=== PATIENT | male | born 1950 | race Caucasian/White ===

== ENCOUNTER → 2016-10-11 | Outpatient (CLI) | payer MEDICARE, MEDICAID ==
[~2016-10-11] MED LIST: ABILIFY 10MG TA10 MG PEG; ABILIFY 10MG TA10 MG PO; ABILIFY 15MG TA15 MG PO; ABILIFY5 MG PO; ALBUTEROL0.83 MG/ML IH; ALDACTONE 25MG25 M1 PEG; ALDACTONE 25MG25 M1 PO; ALDACTONE 25MG25 MG PO; ALDACTONE25 MG PO; ALLEGRA30 MG PEG; ALMACONE 360 M360 ML PO; AMANTADINE HCL100 M1 PO; AMANTADINE100 MG PO; AMBIEN CR12.5 MG PO; AMBIEN10 MG PO; AMITIZA24 MCG PEG; AMITIZA24 MCG PO; ANTI-DIARRHEAL2 MG PO; ANTIFUNGAL1% TP; ANUSOL HC CREAM30 GM TOP; ANUSOL HC CREAM30 GM TP; ARICEPT 5MG PEG; ASPIR-LOW81 MG PO; ASPIRIN 81M81 MG/TA2 PEG; ASPIRIN 81M81 MG/TA2 PO; ASPIRIN E.C. 8181 MG PO; ATIVAN 0.50.5 MG/TAB PO; ATIVAN 1MG T1 MG/TAB PEG; ATIVAN 1MG T1 MG/TAB PO; ATROVENT I0.2 MG/1 M IH; ATROVENT INHALE14 GM IH; ATROVENT0.018 MG/A IH; BACTROBAN15 GM TOP; BENADRYL50 MG PO; BOOST HIGH PRO240 ML PEG; BOOST HIGH PRO240 ML PO; BOOST PLUS 240240 ML PEG; CARAFATE 1GM1 G PO; CARAFATE1 GM PO; CARVEDILOL PO; CEPHALEXIN500 M1 PEG; CLONAZEPAM PO; CLOPIDOGREL; CLOPIDOGREL PO; CLOZAPINE25 MG PO; COGENTIN .0.5 MG/TAB PEG; COGENTIN .0.5 MG/TAB PO; COLACE 100100 MG/CAP PEG; COLACE 100100 MG/CAP PO; COLACE LIQUI10 MG/ML PEG; COLACE100 MG PO; COLACE50 MG PEG; COREG 25MG25 MG/TAB PO; COREG 3.123.125 MG/T PEG; COREG 6.256.25 MG/TA PEG; COREG 6.256.25 MG/TA PO; COREG12.5 MG PEG; COREG12.5 MG PO; CORRECTIVE LAXAT5 MG PO; CPAP; CPAP PO; CYMBALTA 30MG30 MG PEG; CYMBALTA 30MG30 MG PO; CYMBALTA 60MG60 MG PEG; CYMBALTA 60MG60 MG PO; DARVOCET N; DEMADEX 20MG20 M1 PEG; DEMADEX 20MG20 M1 PO; DEMADEX10 MG PO; DESITIN ORIGINAL TP; DESITIN RAPID REL13% TP; DESITIN40% TP; DESYREL 50MG50 MG PEG; DESYREL 50MG50 MG PO; DESYREL DIVIDO150 M1 PO; DETROL LA4 PO; DIGITEK0.125 MG PEG; DIGITEK0.125 MG PO; DIGITEK0.25 MG PO; DIGOXIN PO; DIGOXIN0.25 MG PO; DILAUDID 2MG TAB2 MG; DILAUDID 2MG TAB2 MG PEG; DILAUDID 2MG TAB2 MG PO; DILAUDID 2MG/2 MG/M1 PEG; DILAUDID 4MG TAB4 MG PEG; DULCOLAX S10 MG/SUPP RC; DULCOLAX TAB5 MG PO; DULCOLAX10 MG RC; ELOCON0.1% TP; ENABLEX15 MG PO; ENALAPRIL MALE2.5 MG PO; ENALAPRIL PEG; ENTRESTO 24 MG1 EACH PO; FENTANYL 50MCG TOP; FLEXERIL 1010 MG/TAB PEG; FLONASE NASAL S16 GM NS; FORTAMET500 MG PO; GEODON 40MG40 MG PO; GERI-TUSSI100 MG/5 M PEG; GERI-TUSSI100 MG/5 M PO; GLUCERNA 1.2 C240 ML PO; GLUCERNA 1.21000 ML PEG; GLUCERNA HUNGE340 ML PO; GLUCOPHAGE500 MG PO; HALDOL 5MG T5 MG/TAB PEG; HALDOL 5MG T5 MG/TAB PO; HALDOL10 MG PO; HALDOL20 MG PO; HALDOL5 MG PO; HYDROCORT CREAM2.5% TP; HYDROCORTISONE30 G3; HYDROXYZINE HCL25 MG PO; IBUPROFEN 200200 MG PO; IMDUR 60MG60 MG/TAB PO; IMDUR ER30 MG PO; IMDUR30 MG PO; IMODIUM 2MG CAPS2 MG PEG; INSULIN LANTUS; IPRATROPIUM BROM3 M1 IH; ISOSORBIDE MON120 MG PEG; ISOSORBIDE MON120 MG PO; ISOSORBIDE30 MG PO; KENALOG 60 ML60 M1 TP; KLONOPIN 0.5MG0.5 MG PEG; KLONOPIN 1MG1 MG PEG; KLONOPIN 1MG1 MG PO; KLONOPIN1 MG PO; KLONOPIN2 MG PEG; KLONOPIN2 MG PO; LACTULOSE10 GM/151 PO; LAMISIL AT1% TP; LAMISIL CREAM30 GM TP; LAMISIL1% TP; LANOXIN 0.120.125 MG PEG; LANOXIN 0.120.125 MG PO; LANOXIN 0.25M0.25 MG PO; LANOXIN0.25 MG PO; LANTUS100 U/ML; LANTUS100 U/ML SC; LANTUS100 U/ML SQ; LASIX 20MG TABL20 MG PO; LASIX20 MG PO; LEVEMIR FLEX100 U/ML SQ; LEVEMIR100 U/ML; LEVEMIR100 U/ML SC; LEVEMIR100 U/ML SQ; LEVOTHROID SO0.15 MG PO; LEVOTHROID0.125 MG PO; LEVOTHYROXIN0.075 MG PO; LEVOTHYROXINE PO; LEXAPRO 10MG10 MG PO; LEXAPRO20 MG PO; LEXAPRO5 MG PO; LIDODERM PATCH TP; LIPITOR 80MG80 MG PEG; LIPITOR 80MG80 MG PO; LOPID 600M600 MG/TAB PEG; LOPRESSOR 225 MG/TAB PEG; LOPRESSOR100 MG PEG; LORTAB 5/500 501 TAB PO; LOTRIMIN1% TP; LOTRISONE LOTIO30 ML TP; LOVENOX120 MG/0.8 SC; MAALOX PLUS / M30 ML PO; MAALOX PLUS 3030 ML PEG; MAALOX1 TAB PO; MAG CITRATE; METFORMIN HCL500 M1 PO; METFORMIN500 MG PO; MILK OF MA400 MG/5 M PEG; MILK OF MA400 MG/51 PO; MILK OF MA400 MG/52; MILK OF MA400 MG/52 PEG; MILK OF MA400 MG/52 PO; MINIPRESS 1M1 MG/CAP PEG; MIRALAX 17GM PK1 PKT PO; MIRAPEX0.25 MG PEG; MIRAPEX0.25 MG PO; MONISTAT TOP; MYCOSTATIN100000 U/1 TP; NAFTIN; NAPROSYN500 MG PO; NASONEX SPRAY; NASONEX SPRAY NAS; NEXIUM 40MG40 MG PO; NEXIUM ORA40 MG/Pack PEG; NEXIUM40 MG PO; NIASPAN 500MG500 MG PO; NIASPAN500 MG PO; NITROGLYCERIN0.4 MG SL; NITROSTAT0.4 MG SL; NITROSTAT0.4 MG/TAB SL; NIZORAL CREAM15 GM TP; NORCO 325 MG-51 TAB PEG; NORCO 325 MG-7.1 TAB PO; NOVLOG SC; NOVOLIN R100 U/ML IJ; NOVOLIN R100 U/ML SC; NOVOLOG 100U100 U/M1 SC; NOVOLOG 100U100 U/M1 SQ; NOVOLOG FLEX100 U/ML SC; NOVOLOG FLEX100 U/ML SQ; NOVOLOG100 U/ML IV; NOVOLOG100 U/ML SQ; NYAMYC100000 U/G TP; NYSTATIN POWDER15 GM TOP; OMEGA-31 SGL PO; OXYCODONE PO; PEPCID 20MG TAB20 MG PEG; PEPCID 20MG TAB20 MG PO; PEPCID AC20 MG PEG; PEPTO BISMOL262 MG PO; PERCOCET 325 MG1 TA2 PO; PERCOCET 500 MG1 TAB PO; PHENERGAN1.25 MG/ML PEG; PHENERGAN25 MG/ML PEG; PLAVIX 75MG TAB75 MG PEG; PLAVIX 75MG TAB75 MG PO; PREVACID 30MG30 MG PO; PRILOSEC 20MG20 MG PEG; PRILOSEC 20MG20 MG PO; PRILOSEC PO; PRINIVIL2.5 MG PEG; PRINIVIL5 MG PEG; PROTONIX 40MG T40 MG PO; PULMICORT0.5 MG/2 M IH; PULMICORT0.5 MG/21 IH; RANEXA 500MG T500 MG PEG; RANEXA 500MG T500 MG PO; RANEXA1000 MG PO; REFRESH TEARS 330 ML OP; REMERON45 MG PEG; REMERON45 MG PO; REQUIP 0.5MG0.5 MG PO; REQUIP0.25 MG PEG; SAVELLA100 MG PO; SEE LIST; SENNA-GEN8.6 MG PO; SENNA8.6 MG PO; SENOKOT TABLET1 EA PO; SEROQUEL 1100 MG/TAB PEG; SEROQUEL 200MG200 MG PEG; SEROQUEL 200MG200 MG PO; SEROQUEL50 MG PO; SILACE60 MG/15 M PEG; SYMMETREL PO; SYMMETREL100 M1 PEG; SYMMETREL100 M1 PO; SYMMETREL100 MG PEG; SYNTHROID 0.10.15 MG PEG; SYNTHROID 0.10.15 MG PO; TIROSINT150 MC1 PO; TIROSINT150 MCG PEG; TRAZODONE HCL100 MG PO; TRAZODONE50 MG PO; TRIAMCINOLONE0.025% TOP; TYLENOL 325MG325 M1 PEG; TYLENOL 325MG325 MG PEG; TYLENOL 325MG325 MG PO; TYLENOL 500MG500 MG PEG; TYLENOL 500MG500 MG PO; ULTRAM 50MG TAB50 MG PO; VASOTEC 2.2.5 MG/TAB PO; VESICARE; VESICARE PO; VOLTAREN-XR100 MG PEG; WATER PEG; XOPENEX 0.0.63 MG/3 IH; ZETIA 10MG TAB10 MG PO; ZETIA10 MG PO; ZOCOR 20MG20 MG PO; ZOCOR20 MG PO; ZOCOR80 MG PO; ZOFRAN 4MG T4 MG/TAB PO; ZOFRAN 4MG T4 MG/TAB SL; ZOFRAN ODT4 MG PO; ZOFRAN ORAL4 MG/5 ML PEG; ZOFRAN ORAL4 MG/5 ML PO; ZYPREXA PO; [UNRECOGNIZED DRUG - OTHER] PEG; [UNRECOGNIZED DRUG - OTHER] PO; [UNRECOGNIZED DRUG - OTHER] PO; [UNRECOGNIZED DRUG - OTHER] PO; [UNRECOGNIZED DRUG - OTHER] TOP; [UNRECOGNIZED DRUG - OTHER] TOP
== END ==
LOC: ZCOL.LAB 16:42
DX: I50.23 Acute on chronic systolic (congestive) heart failure (principal)

== ENCOUNTER 2016-10-20 01:39 | Emergency (ER) | payer MEDICARE, MEDICAID ==
[2009-06-25 08:46] VITALS: BP 124/79
[~2016-10-20] VITALS: Ht 180.3 cm; Wt 92.7 kg
[~2016-10-20 01:39] MED LIST changes: -ALBUTEROL0.83 MG/ML IH; -ANTI-DIARRHEAL2 MG PO; -ASPIRIN 81M81 MG/TA2 PO; -ATIVAN 0.50.5 MG/TAB PO; -BACTROBAN15 GM TOP; -BOOST HIGH PRO240 ML PO; -BOOST PLUS 240240 ML PEG; -CORRECTIVE LAXAT5 MG PO; -DEMADEX10 MG PO; -DILAUDID 4MG TAB4 MG PEG; -ENTRESTO 24 MG1 EACH PO; -GERI-TUSSI100 MG/5 M PEG; -GERI-TUSSI100 MG/5 M PO; -IPRATROPIUM BROM3 M1 IH; -ISOSORBIDE MON120 MG PO; -KENALOG 60 ML60 M1 TP; -LEVEMIR FLEX100 U/ML SQ; -MILK OF MA400 MG/52; -MONISTAT TOP; -NAPROSYN500 MG PO; -OMEGA-31 SGL PO; -PLAVIX 75MG TAB75 MG PO; -PRILOSEC 20MG20 MG PEG; -PROTONIX 40MG T40 MG PO; -RANEXA1000 MG PO; -REFRESH TEARS 330 ML OP; -REQUIP 0.5MG0.5 MG PO; -TIROSINT150 MC1 PO; -ULTRAM 50MG TAB50 MG PO; -ZOFRAN ODT4 MG PO
[2016-10-20 01:44] VITALS: TEMP 98.2
[2016-10-20 02:03] LABS: BASO % 0.5 % (0.0-2.0); EOS # 0.1 (0.0-0.7); EOS % 2.4 % (0-4.0); GRAN # 2.7 (1.4-6.5); GRAN % 46.6 % (42.2-75.2); HEMATOCRIT 45.1 % (42.0-52.0); HEMOGLOBIN 15.4 g/dl (13.5-18.0); LYMPH # 2.3 (1.2-3.4); LYMPH % 39.4 % (20.0-51.0); MEAN CELL VOLUME 91 fl (80.0-100.0); MEAN CORPUSCULAR HEMOGLOBIN 31 pg (27.0-31.0); MEAN CORPUSCULAR HGB CONC 34 g/dl (33.0-37.0); MEAN PLATELET VOLUME 9.6 fl (7.4-10.4); MONO # 0.6 (0.1-0.6); MONO % 10.2 % (1.7-9.3); PLATELET COUNT 151 K/mm3 (130-400); RED BLOOD COUNT 4.96 M/mm3 (4.20-5.60); REDCELL DISTRIBUTION WIDTH-CV 12.8 % (11.5-14.5); WHITE BLOOD COUNT 5.8 K/mm3 (4.8-10.8)
[2016-10-20 02:12] LABS: INR 1.1 (0.8-3.0); PROTHROMBIN TIME 12.3 SECONDS (9.7-12.8)
[2016-10-20 02:13] LABS: ADJUSTED CALCIUM 9.5 mg/dL (8.4-10.2); ALANINE AMINOTRANSFERASE 36 U/L (21-72); ALBUMIN 4.3 gm/dL (3.5-5.0); ALKALINE PHOSPHATASE 62 U/L (50-136); ANION GAP 11 mmol/L (7-16); BILIRUBIN,TOTAL 1.3 mg/dL (0.0-1.0); BLOOD UREA NITROGEN 15 mg/dL (9-20); CALCIUM 9.7 mg/dL (8.4-10.2); CARBON DIOXIDE 30 mmol/L (22-30); CHLORIDE 101 mmol/L (98-107); GLUCOSE 127 mg/dL (74-106); LIPASE 86 U/L (23-300); SODIUM 142 mmol/L (137-145); TOTAL PROTEIN 7.1 gm/dL (6.4-8.2)
[2016-10-20 02:25] LABS: TROPONIN-I < 0.012 ng/mL (0.000-0.034)
[2016-10-20] MEDS ORDERED: PRILOSEC 20MG20 MG PEG (02:27)
[2016-10-20] MEDS ORDERED: DEMADEX 20MG20 M1 PO ×2 (02:28→02:43)
[2016-10-20] MEDS ORDERED: KLONOPIN2 MG PEG (02:38)
[2016-10-20] MEDS ORDERED: IPRATROPIUM BROM3 M1 IH (02:40)
[2016-10-20] MEDS ORDERED: DILAUDID 4MG TAB4 MG PEG (02:42)
[2016-10-20 03:00] VITALS: BP 137/82; PULSE 77
== END 2016-10-20 03:26 ==
LOC: COL.ER 01:39
PROVIDERS: Emergency Medicine
DX: R07.89 Other chest pain (principal); E11.9 Type 2 diabetes mellitus without complications; I25.10 Atherosclerotic heart disease of native coronary artery without angina pectoris; Z95.5 Presence of coronary angioplasty implant and graft; I50.9 Heart failure, unspecified; I25.2 Old myocardial infarction; J44.9 Chronic obstructive pulmonary disease, unspecified; Z91.81 History of falling
CPT/HCPCS: A9284; J1170

== ENCOUNTER → 2016-10-26 | Outpatient (CLI) | payer MEDICARE, MEDICAID, BC ==
[~2016-10-26] MED LIST changes: +ALBUTEROL0.83 MG/ML IH; +ANTI-DIARRHEAL2 MG PO; +ASPIRIN 81M81 MG/TA2 PO; +ATIVAN 0.50.5 MG/TAB PO; +BACTROBAN15 GM TOP; +BOOST HIGH PRO240 ML PO; +BOOST PLUS 240240 ML PEG; +CORRECTIVE LAXAT5 MG PO; +DEMADEX10 MG PO; +DILAUDID 4MG TAB4 MG PEG; +ENTRESTO 24 MG1 EACH PO; +GERI-TUSSI100 MG/5 M PEG; +GERI-TUSSI100 MG/5 M PO; +IPRATROPIUM BROM3 M1 IH; +ISOSORBIDE MON120 MG PO; +KENALOG 60 ML60 M1 TP; +LEVEMIR FLEX100 U/ML SQ; +MILK OF MA400 MG/52; +MONISTAT TOP; +NAPROSYN500 MG PO; +OMEGA-31 SGL PO; +PLAVIX 75MG TAB75 MG PO; +PRILOSEC 20MG20 MG PEG; +PROTONIX 40MG T40 MG PO; +RANEXA1000 MG PO; +REFRESH TEARS 330 ML OP; +REQUIP 0.5MG0.5 MG PO; +TIROSINT150 MC1 PO; +ULTRAM 50MG TAB50 MG PO; +ZOFRAN ODT4 MG PO
[2016-10-26 18:11] LABS: BASO % 0.4 % (0.0-2.0); EOS # 0.2 (0.0-0.7); EOS % 1.8 % (0-4.0); GRAN % 63.7 % (42.2-75.2); HEMATOCRIT 44.2 % (42.0-52.0); LYMPH # 2.2 (1.2-3.4); LYMPH % 22.9 % (20.0-51.0); MEAN CELL VOLUME 92 fl (80.0-100.0); MEAN CORPUSCULAR HEMOGLOBIN 31 pg (27.0-31.0); MEAN CORPUSCULAR HGB CONC 34 g/dl (33.0-37.0); MEAN PLATELET VOLUME 11.1 fl (7.4-10.4); MONO % 10.7 % (1.7-9.3); PLATELET COUNT 153 K/mm3 (130-400); RED BLOOD COUNT 4.83 M/mm3 (4.20-5.60); REDCELL DISTRIBUTION WIDTH-CV 12.7 % (11.5-14.5); WHITE BLOOD COUNT 9.5 K/mm3 (4.8-10.8)
[2016-10-26 18:16] LABS: ADJUSTED CALCIUM 9.5 mg/dL (8.4-10.2); ALBUMIN 4.1 gm/dL (3.5-5.0); BILIRUBIN,TOTAL 1.1 mg/dL (0.0-1.0); CALCIUM 9.6 mg/dL (8.4-10.2); CREATININE, serum 1.16 mg/dL (0.66-1.25); POTASSIUM 3.8 mmol/L (3.4-5.0); TOTAL PROTEIN 6.8 gm/dL (6.4-8.2)
== END ==
LOC: ZCOL.LAB 17:55
PROVIDERS: Internal Medicine
DX: E11.65 Type 2 diabetes mellitus with hyperglycemia (principal); I25.10 Atherosclerotic heart disease of native coronary artery without angina pectoris; I50.23 Acute on chronic systolic (congestive) heart failure

== ENCOUNTER → 2016-10-30 | Outpatient (CLI) | payer MEDICARE, BC, MEDICAID | LOC: ZCOL.LAB 23:27 | DX: R30.0 Dysuria (principal); R53.1 Weakness ==

== ENCOUNTER → 2016-10-31 | Outpatient (CLI) | payer MEDICARE, MEDICAID | LOC: COL.RAD 08:16 | DX: R07.89 Other chest pain (principal); I70.0 Atherosclerosis of aorta; I25.10 Atherosclerotic heart disease of native coronary artery without angina pectoris; Z95.0 Presence of cardiac pacemaker; J84.89 Other specified interstitial pulmonary diseases; N20.0 Calculus of kidney; K82.8 Other specified diseases of gallbladder; R10.84 Generalized abdominal pain; Z93.1 Gastrostomy status | CPT/HCPCS: Q9967 ==

== ENCOUNTER → 2016-11-13 | Outpatient (CLI) | payer MEDICARE, MEDICAID | LOC: ZCOL.LAB 13:34 | DX: E11.65 Type 2 diabetes mellitus with hyperglycemia (principal); I48.0 Paroxysmal atrial fibrillation ==

== ENCOUNTER 2016-11-20 18:43 | Emergency (ER) | payer MEDICARE, MEDICAID ==
[2009-06-25 08:46] VITALS: BP 124/79
[~2016-11-20] VITALS: Ht 180.3 cm; Wt 92.3 kg
[~2016-11-20 18:43] MED LIST changes: -ALBUTEROL0.83 MG/ML IH; -ANTI-DIARRHEAL2 MG PO; -ASPIRIN 81M81 MG/TA2 PO; -ATIVAN 0.50.5 MG/TAB PO; -BACTROBAN15 GM TOP; -BOOST HIGH PRO240 ML PO; -BOOST PLUS 240240 ML PEG; -CORRECTIVE LAXAT5 MG PO; -DEMADEX10 MG PO; -ENTRESTO 24 MG1 EACH PO; -GERI-TUSSI100 MG/5 M PEG; -GERI-TUSSI100 MG/5 M PO; -ISOSORBIDE MON120 MG PO; -KENALOG 60 ML60 M1 TP; -LEVEMIR FLEX100 U/ML SQ; -MILK OF MA400 MG/52; -MONISTAT TOP; -NAPROSYN500 MG PO; -OMEGA-31 SGL PO; -PLAVIX 75MG TAB75 MG PO; -PROTONIX 40MG T40 MG PO; -RANEXA1000 MG PO; -REFRESH TEARS 330 ML OP; -REQUIP 0.5MG0.5 MG PO; -TIROSINT150 MC1 PO; -ULTRAM 50MG TAB50 MG PO; -ZOFRAN ODT4 MG PO
[2016-11-20 18:53] VITALS: TEMP 98
[2016-11-20 18:58] LABS: BASO % 0.5 % (0.0-2.0); EOS # 0.1 (0.0-0.7); EOS % 2.2 % (0-4.0); GRAN # 3.4 (1.4-6.5); GRAN % 57.2 % (42.2-75.2); HEMATOCRIT 45.9 % (42.0-52.0); HEMOGLOBIN 15.5 g/dl (13.5-18.0); LYMPH # 1.7 (1.2-3.4); LYMPH % 29.2 % (20.0-51.0); MEAN CELL VOLUME 91 fl (80.0-100.0); MEAN CORPUSCULAR HEMOGLOBIN 31 pg (27.0-31.0); MEAN CORPUSCULAR HGB CONC 34 g/dl (33.0-37.0); MEAN PLATELET VOLUME 10.5 fl (7.4-10.4); MONO # 0.6 (0.1-0.6); MONO % 10.4 % (1.7-9.3); PLATELET COUNT 142 K/mm3 (130-400); RED BLOOD COUNT 5.05 M/mm3 (4.20-5.60); REDCELL DISTRIBUTION WIDTH-CV 13.1 % (11.5-14.5)
[2016-11-20 19:09] LABS: ADJUSTED CALCIUM 9.4 mg/dL (8.4-10.2); ALANINE AMINOTRANSFERASE 29 U/L (21-72); ALBUMIN 4.4 gm/dL (3.5-5.0); ALKALINE PHOSPHATASE 81 U/L (50-136); ANION GAP 11 mmol/L (7-16); BILIRUBIN,TOTAL 1.1 mg/dL (0.0-1.0); BLOOD UREA NITROGEN 19 mg/dL (9-20); CALCIUM 9.7 mg/dL (8.4-10.2); CARBON DIOXIDE 32 mmol/L (22-30); CHLORIDE 96 mmol/L (98-107); CREATININE, serum 1.12 mg/dL (0.66-1.25); GLUCOSE 210 mg/dL (74-106); LIPASE 55 U/L (23-300); POTASSIUM 3.5 mmol/L (3.4-5.0); SODIUM 139 mmol/L (137-145); TOTAL PROTEIN 7.5 gm/dL (6.4-8.2)
[2016-11-20 19:19] LABS: B-TYPE NATRIURETIC PEPTIDE 267 pg/mL (0-125)
[2016-11-20 19:22] LABS: TROPONIN-I < 0.012 ng/mL (0.000-0.034)
[2016-11-20] MEDS ORDERED: NOVOLOG FLEX100 U/ML SQ ×2 (19:41→19:45)
[2016-11-20] MEDS ORDERED: NAPROSYN500 MG PO (19:48)
[2016-11-20] MEDS ORDERED: GERI-TUSSI100 MG/5 M PO (19:48)
[2016-11-20] MEDS ORDERED: CORRECTIVE LAXAT5 MG PO (19:49)
[2016-11-20 20:11] LABS: DIGOXIN 0.8 ng/mL (0.8-2.0)
[2016-11-20] MEDS ORDERED: ULTRAM 50MG TAB50 MG PO (23:38)
[2016-11-21 00:15] VITALS: BP 152/86; PULSE 76
== END 2016-11-21 00:41 | disposition home or self-care (01) ==
LOC: COL.ER 18:43
PROVIDERS: Emergency Medicine
DX: R07.9 Chest pain, unspecified (principal); I10 Essential (primary) hypertension; E11.9 Type 2 diabetes mellitus without complications; Z79.4 Long term (current) use of insulin; Z79.02 Long term (current) use of antithrombotics/antiplatelets; J44.9 Chronic obstructive pulmonary disease, unspecified; Z95.810 Presence of automatic (implantable) cardiac defibrillator; Z95.5 Presence of coronary angioplasty implant and graft; I25.10 Atherosclerotic heart disease of native coronary artery without angina pectoris; I44.0 Atrioventricular block, first degree
CPT/HCPCS: J2270; J2405

== ENCOUNTER → 2016-11-28 | Outpatient (CLI) | payer MEDICARE, MEDICAID ==
[~2016-11-28] MED LIST changes: +ALBUTEROL0.83 MG/ML IH; +ANTI-DIARRHEAL2 MG PO; +ASPIRIN 81M81 MG/TA2 PO; +ATIVAN 0.50.5 MG/TAB PO; +BACTROBAN15 GM TOP; +BOOST HIGH PRO240 ML PO; +BOOST PLUS 240240 ML PEG; +CORRECTIVE LAXAT5 MG PO; +DEMADEX10 MG PO; +ENTRESTO 24 MG1 EACH PO; +GERI-TUSSI100 MG/5 M PEG; +GERI-TUSSI100 MG/5 M PO; +ISOSORBIDE MON120 MG PO; +KENALOG 60 ML60 M1 TP; +LEVEMIR FLEX100 U/ML SQ; +MILK OF MA400 MG/52; +MONISTAT TOP; +NAPROSYN500 MG PO; +OMEGA-31 SGL PO; +PLAVIX 75MG TAB75 MG PO; +PROTONIX 40MG T40 MG PO; +RANEXA1000 MG PO; +REFRESH TEARS 330 ML OP; +REQUIP 0.5MG0.5 MG PO; +TIROSINT150 MC1 PO; +ULTRAM 50MG TAB50 MG PO; +ZOFRAN ODT4 MG PO
== END ==
LOC: COL.RAD 10:37
DX: R10.84 Generalized abdominal pain (principal)
CPT/HCPCS: A9537; J2805

== ENCOUNTER 2016-12-15 13:25 | Day surgery (SDC) | payer MEDICARE, MEDICAID ==
[2009-06-25 08:46] VITALS: BP 124/79
[~2016-12-15] VITALS: Ht 180.3 cm; Wt 91.8 kg
[~2016-12-15 13:25] MED LIST changes: -ALBUTEROL0.83 MG/ML IH; -ANTI-DIARRHEAL2 MG PO; -ASPIRIN 81M81 MG/TA2 PO; -ATIVAN 0.50.5 MG/TAB PO; -BACTROBAN15 GM TOP; -BOOST HIGH PRO240 ML PO; -BOOST PLUS 240240 ML PEG; -DEMADEX10 MG PO; -ENTRESTO 24 MG1 EACH PO; -GERI-TUSSI100 MG/5 M PEG; -ISOSORBIDE MON120 MG PO; -KENALOG 60 ML60 M1 TP; -LEVEMIR FLEX100 U/ML SQ; -MILK OF MA400 MG/52; -MONISTAT TOP; -OMEGA-31 SGL PO; -PLAVIX 75MG TAB75 MG PO; -PROTONIX 40MG T40 MG PO; -RANEXA1000 MG PO; -REFRESH TEARS 330 ML OP; -REQUIP 0.5MG0.5 MG PO; -TIROSINT150 MC1 PO; -ZOFRAN ODT4 MG PO
[2016-12-15 14:26] VITALS: BP 104/78; PULSE 82
[2016-12-15] MEDS ORDERED: AMITIZA24 MCG PO (14:39)
[2016-12-15] MEDS ORDERED: BOOST HIGH PRO240 ML PO (14:46)
[2016-12-15] MEDS ORDERED: PRILOSEC 20MG20 MG PO (14:47)
[2016-12-15] MEDS ORDERED: ENTRESTO 24 MG1 EACH PO (14:50)
[2016-12-15] MEDS ORDERED: ALDACTONE 25MG25 M1 PO (14:51)
[2016-12-15] MEDS ORDERED: MILK OF MA400 MG/52 (14:52)
[2016-12-15] MEDS ORDERED: GERI-TUSSI100 MG/5 M PEG (14:56)
[2016-12-15 15:20] VITALS: BP 130/83; PULSE 76
== END 2016-12-15 15:52 ==
LOC: SDCO 13:25
DX: K94.23 Gastrostomy malfunction (principal)
CPT/HCPCS: 31007; B4087

== ENCOUNTER → 2016-12-26 | Outpatient (CLI) | payer MEDICARE, MEDICAID ==
[~2016-12-26] MED LIST changes: +ALBUTEROL0.83 MG/ML IH; +ANTI-DIARRHEAL2 MG PO; +ASPIRIN 81M81 MG/TA2 PO; +ATIVAN 0.50.5 MG/TAB PO; +BACTROBAN15 GM TOP; +BOOST HIGH PRO240 ML PO; +BOOST PLUS 240240 ML PEG; +DEMADEX10 MG PO; +ENTRESTO 24 MG1 EACH PO; +GERI-TUSSI100 MG/5 M PEG; +ISOSORBIDE MON120 MG PO; +KENALOG 60 ML60 M1 TP; +LEVEMIR FLEX100 U/ML SQ; +MILK OF MA400 MG/52; +MONISTAT TOP; +OMEGA-31 SGL PO; +PLAVIX 75MG TAB75 MG PO; +PROTONIX 40MG T40 MG PO; +RANEXA1000 MG PO; +REFRESH TEARS 330 ML OP; +REQUIP 0.5MG0.5 MG PO; +TIROSINT150 MC1 PO; +ZOFRAN ODT4 MG PO
[2016-12-26 17:42] LABS: CALCIUM 9.5 mg/dL (8.4-10.2); CREATININE, serum 1.15 mg/dL (0.66-1.25); POTASSIUM 4.4 mmol/L (3.4-5.0)
== END ==
LOC: ZCOL.LAB 15:08
PROVIDERS: Internal Medicine
DX: E11.65 Type 2 diabetes mellitus with hyperglycemia (principal)

== ENCOUNTER 2016-12-31 14:30 | Emergency (ER) | payer MEDICARE, MEDICAID ==
[2009-06-25 08:46] VITALS: BP 124/79
[~2016-12-31] VITALS: Ht 180.3 cm; Wt 91.8 kg
[~2016-12-31 14:30] MED LIST changes: -ALBUTEROL0.83 MG/ML IH; -ANTI-DIARRHEAL2 MG PO; -ASPIRIN 81M81 MG/TA2 PO; -ATIVAN 0.50.5 MG/TAB PO; -BACTROBAN15 GM TOP; -BOOST PLUS 240240 ML PEG; -DEMADEX10 MG PO; -ISOSORBIDE MON120 MG PO; -KENALOG 60 ML60 M1 TP; -LEVEMIR FLEX100 U/ML SQ; -MONISTAT TOP; -OMEGA-31 SGL PO; -PLAVIX 75MG TAB75 MG PO; -PROTONIX 40MG T40 MG PO; -RANEXA1000 MG PO; -REFRESH TEARS 330 ML OP; -REQUIP 0.5MG0.5 MG PO; -TIROSINT150 MC1 PO; -ZOFRAN ODT4 MG PO
[2016-12-31 14:36] VITALS: TEMP 97.9
[2016-12-31] MEDS ORDERED: AMITIZA24 MCG PO ×2 (15:04→15:05)
[2016-12-31 15:52] LABS: BASO % 0.5 % (0.0-2.0); EOS # 0.1 (0.0-0.7); EOS % 1.7 % (0-4.0); GRAN % 61.7 % (42.2-75.2); HEMATOCRIT 43.3 % (42.0-52.0); HEMOGLOBIN 14.8 g/dl (13.5-18.0); LYMPH # 1.8 (1.2-3.4); LYMPH % 27.1 % (20.0-51.0); MEAN CELL VOLUME 90 fl (80.0-100.0); MEAN CORPUSCULAR HEMOGLOBIN 31 pg (27.0-31.0); MEAN CORPUSCULAR HGB CONC 34 g/dl (33.0-37.0); MEAN PLATELET VOLUME 10.5 fl (7.4-10.4); MONO # 0.5 (0.1-0.6); MONO % 8.2 % (1.7-9.3); PLATELET COUNT 139 K/mm3 (130-400); REDCELL DISTRIBUTION WIDTH-CV 13.3 % (11.5-14.5); WHITE BLOOD COUNT 6.5 K/mm3 (4.8-10.8)
[2016-12-31 15:54] LABS: INR 1.1 (0.8-3.0); PROTHROMBIN TIME 12.6 SECONDS (9.7-12.8)
[2016-12-31 15:57] LABS: PARTIAL THROMBOPLASTIN TIME 32.2 SECONDS (26.0-37.0)
[2016-12-31 15:58] LABS: ADJUSTED CALCIUM 9.2 mg/dL (8.4-10.2); CALCIUM 9.2 mg/dL (8.4-10.2); CREATININE, serum 1.24 mg/dL (0.66-1.25); POTASSIUM 4.5 mmol/L (3.4-5.0); TOTAL PROTEIN 6.6 gm/dL (6.4-8.2)
[2016-12-31] MEDS ORDERED: REQUIP 0.5MG0.5 MG PO (16:04)
[2016-12-31] MEDS ORDERED: IPRATROPIUM BROM3 M1 IH (16:12)
[2016-12-31] MEDS ORDERED: ZOFRAN ODT4 MG PO (16:15)
[2016-12-31 17:09] VITALS: BP 113/69; PULSE 88
== END 2016-12-31 17:50 | disposition home or self-care (01) ==
LOC: COL.ER 14:30
PROVIDERS: Emergency Medicine
DX: S50.01XA Contusion of right elbow, initial encounter (principal); S50.311A Abrasion of right elbow, initial encounter; E11.9 Type 2 diabetes mellitus without complications; I10 Essential (primary) hypertension; Z79.4 Long term (current) use of insulin; W18.09XA Striking against other object with subsequent fall, initial encounter
CPT/HCPCS: J1170

== ENCOUNTER 2017-01-12 11:58 | Day surgery (SDC) | payer MEDICARE, MEDICAID ==
[2009-06-25 08:46] VITALS: BP 124/79
[~2017-01-12] VITALS: Ht 180.3 cm; Wt 90.0 kg
[~2017-01-12 11:58] MED LIST changes: +REQUIP 0.5MG0.5 MG PO; +ZOFRAN ODT4 MG PO
[2017-01-12 12:40] VITALS: BP 111/60; PULSE 80; TEMP 98.4
[2017-01-12 13:09] LABS: HEMATOCRIT 40.4 % (42.0-52.0); HEMOGLOBIN 13.9 g/dl (13.5-18.0); MEAN CELL VOLUME 90 fl (80.0-100.0); MEAN CORPUSCULAR HEMOGLOBIN 31 pg (27.0-31.0); MEAN CORPUSCULAR HGB CONC 34 g/dl (33.0-37.0); MEAN PLATELET VOLUME 9.9 fl (7.4-10.4); PLATELET COUNT 150 K/mm3 (130-400); RED BLOOD COUNT 4.51 M/mm3 (4.20-5.60); WHITE BLOOD COUNT 8.5 K/mm3 (4.8-10.8)
[2017-01-12 13:10] LABS: CALCIUM 9.1 mg/dL (8.4-10.2); CREATININE, serum 1.19 mg/dL (0.66-1.25); POTASSIUM 4.4 mmol/L (3.4-5.0)
[2017-01-12 13:13] LABS: INR 1.2 (0.8-3.0); PROTHROMBIN TIME 13.3 SECONDS (9.7-12.8)
[2017-01-12] MEDS ORDERED: DILAUDID 4MG TAB4 MG PEG (14:15)
[2017-01-12] MEDS ORDERED: LASIX 20MG TABL20 MG PO (14:31)
[2017-01-12] MEDS ORDERED: ALBUTEROL0.83 MG/ML IH (14:39)
[2017-01-12 14:44] VITALS: BP 143/86; PULSE 84
[2017-01-12 16:20] VITALS: BP 116/48; PULSE 79; TEMP 98.2
[2017-01-12 16:50] VITALS: BP 117/71; PULSE 86
[2017-01-12 20:16] VITALS: BP 119/69; PULSE 84; TEMP 97.2
[2017-01-12 23:57] VITALS: BP 123/71; PULSE 83; TEMP 98.2
[2017-01-13 03:48] VITALS: BP 136/84; PULSE 77; TEMP 98
[2017-01-13 08:32] VITALS: BP 126/72; PULSE 81; TEMP 97.6
== END 2017-01-13 13:04 ==
LOC: COL.RAD 11:58 → MEDICAL 16:15 → COL.RAD 01-13 13:04
PROVIDERS: Internal Medicine Interventional Cardiology
DX: Z45.02 Encounter for adjustment and management of automatic implantable cardiac defibrillator (principal); I50.22 Chronic systolic (congestive) heart failure; I48.91 Unspecified atrial fibrillation; E11.9 Type 2 diabetes mellitus without complications; G47.33 Obstructive sleep apnea (adult) (pediatric); G20 Parkinson's disease
CPT/HCPCS: OP; C1721; J0690; J1815; J2250; J3010; J7030

== ENCOUNTER → 2017-02-05 | Outpatient (CLI) | payer MEDICARE, MEDICAID ==
[~2017-02-05] MED LIST changes: +ALBUTEROL0.83 MG/ML IH; +ANTI-DIARRHEAL2 MG PO; +ASPIRIN 81M81 MG/TA2 PO; +ATIVAN 0.50.5 MG/TAB PO; +BACTROBAN15 GM TOP; +BOOST PLUS 240240 ML PEG; +DEMADEX10 MG PO; +ISOSORBIDE MON120 MG PO; +KENALOG 60 ML60 M1 TP; +LEVEMIR FLEX100 U/ML SQ; +MONISTAT TOP; +OMEGA-31 SGL PO; +PLAVIX 75MG TAB75 MG PO; +PROTONIX 40MG T40 MG PO; +RANEXA1000 MG PO; +REFRESH TEARS 330 ML OP; +TIROSINT150 MC1 PO
== END ==
LOC: ZCOL.LAB 12:21
DX: E11.65 Type 2 diabetes mellitus with hyperglycemia (principal); Z02.89 Encounter for other administrative examinations

== ENCOUNTER 2017-03-23 17:02 | Emergency (ER) | payer MEDICARE, MEDICAID ==
[2009-06-25 08:46] VITALS: BP 124/79
[~2017-03-23] VITALS: Ht 180.3 cm; Wt 92.7 kg
[~2017-03-23 17:02] MED LIST changes: -ANTI-DIARRHEAL2 MG PO; -ASPIRIN 81M81 MG/TA2 PO; -ATIVAN 0.50.5 MG/TAB PO; -BACTROBAN15 GM TOP; -BOOST PLUS 240240 ML PEG; -DEMADEX10 MG PO; -ISOSORBIDE MON120 MG PO; -KENALOG 60 ML60 M1 TP; -LEVEMIR FLEX100 U/ML SQ; -MONISTAT TOP; -OMEGA-31 SGL PO; -PLAVIX 75MG TAB75 MG PO; -PROTONIX 40MG T40 MG PO; -RANEXA1000 MG PO; -REFRESH TEARS 330 ML OP; -TIROSINT150 MC1 PO
[2017-03-23 17:03] VITALS: TEMP 98.1
[2017-03-23 17:46] LABS: BASO % 0.4 % (0.0-2.0); EOS # 0.1 (0.0-0.7); EOS % 1.9 % (0-4.0); GRAN # 4.4 (1.4-6.5); GRAN % 64.1 % (42.2-75.2); HEMATOCRIT 40.5 % (42.0-52.0); HEMOGLOBIN 14.2 g/dl (13.5-18.0); LYMPH # 1.4 (1.2-3.4); LYMPH % 20.8 % (20.0-51.0); MEAN CELL VOLUME 92 fl (80.0-100.0); MEAN CORPUSCULAR HEMOGLOBIN 32 pg (27.0-31.0); MEAN CORPUSCULAR HGB CONC 35 g/dl (33.0-37.0); MEAN PLATELET VOLUME 10.3 fl (7.4-10.4); MONO # 0.8 (0.1-0.6); MONO % 11.8 % (1.7-9.3); PLATELET COUNT 121 K/mm3 (130-400); RED BLOOD COUNT 4.41 M/mm3 (4.20-5.60); REDCELL DISTRIBUTION WIDTH-CV 12.7 % (11.5-14.5); WHITE BLOOD COUNT 6.8 K/mm3 (4.8-10.8)
[2017-03-23 17:55] LABS: CALCIUM 8.9 mg/dL (8.4-10.2); CREATININE, serum 1.4 mg/dL (0.66-1.25); POTASSIUM 3.7 mmol/L (3.4-5.0)
[2017-03-23 19:51] VITALS: BP 128/72; PULSE 80
== END 2017-03-23 19:51 | disposition home or self-care (01) ==
LOC: COL.ER 17:02
PROVIDERS: Emergency Medicine
DX: S09.90XA Unspecified injury of head, initial encounter (principal); S00.03XA Contusion of scalp, initial encounter; W01.198A Fall on same level from slipping, tripping and stumbling with subsequent striking against other object, initial encounter; Y92.414 Local residential or business street as the place of occurrence of the external cause; M54.5 Low back pain; F99 Mental disorder, not otherwise specified; G89.29 Other chronic pain; I10 Essential (primary) hypertension
CPT/HCPCS: J7040

== ENCOUNTER → 2017-03-23 | Outpatient (CLI) | payer MEDICARE, MEDICAID ==
[2017-03-23 06:40] LABS: CALCIUM 8.7 mg/dL (8.4-10.2); POTASSIUM 3.7 mmol/L (3.4-5.0)
== END ==
LOC: ZCOL.LAB 06:03
PROVIDERS: Internal Medicine
DX: I50.23 Acute on chronic systolic (congestive) heart failure (principal)

== ENCOUNTER 2017-05-04 09:42 | Day surgery (SDC) | payer MEDICARE, MEDICAID ==
[2009-06-25 08:46] VITALS: BP 124/79
[~2017-05-04] VITALS: Ht 180.3 cm; Wt 90.2 kg
[2017-05-04 10:08] VITALS: BP 105/68; PULSE 95; TEMP 98
[2017-05-04] MEDS ORDERED: SYMMETREL100 M1 PO (10:40)
[2017-05-04] MEDS ORDERED: AMITIZA24 MCG PO (10:41)
[2017-05-04] MEDS ORDERED: ASPIRIN 81M81 MG/TA2 PO (10:41)
[2017-05-04] MEDS ORDERED: LIPITOR 80MG80 MG PO (10:42)
[2017-05-04] MEDS ORDERED: NITROSTAT0.4 MG/TAB SL (10:43)
[2017-05-04] MEDS ORDERED: COGENTIN .0.5 MG/TAB PO (10:43)
[2017-05-04] MEDS ORDERED: PLAVIX 75MG TAB75 MG PO (10:44)
[2017-05-04] MEDS ORDERED: TIROSINT150 MC1 PO (10:45)
[2017-05-04] MEDS ORDERED: TYLENOL 500MG500 MG PO (10:45)
[2017-05-04] MEDS ORDERED: WATER PEG (10:48)
[2017-05-04] MEDS ORDERED: PEPCID 20MG TAB20 MG PO (10:48)
[2017-05-04] MEDS ORDERED: COREG12.5 MG PO (10:49)
[2017-05-04] MEDS ORDERED: MILK OF MA400 MG/52 PO (10:49)
[2017-05-04] MEDS ORDERED: CYMBALTA 30MG30 MG PO (10:50)
[2017-05-04] MEDS ORDERED: ZOFRAN 4MG T4 MG/TAB PO (10:51)
[2017-05-04] MEDS ORDERED: NOVOLOG FLEX100 U/ML SQ (10:52)
[2017-05-04] MEDS ORDERED: ABILIFY 10MG TA10 MG PO (10:53)
[2017-05-04] MEDS ORDERED: BOOST PLUS 240240 ML PEG (10:53)
[2017-05-04] MEDS ORDERED: KLONOPIN2 MG PO (10:54)
[2017-05-04] MEDS ORDERED: GERI-TUSSI100 MG/5 M PEG (10:55)
[2017-05-04] MEDS ORDERED: ISOSORBIDE MON120 MG PO (10:56)
[2017-05-04] MEDS ORDERED: DULCOLAX TAB5 MG PO (10:56)
[2017-05-04] MEDS ORDERED: LANOXIN 0.120.125 MG PO (10:57)
[2017-05-04] MEDS ORDERED: ALDACTONE 25MG25 M1 PO (10:58)
[2017-05-04] MEDS ORDERED: ATROVENT I0.2 MG/1 M IH (10:58)
[2017-05-04] MEDS ORDERED: REQUIP 0.5MG0.5 MG PO (10:59)
[2017-05-04] MEDS ORDERED: RANEXA1000 MG PO (10:59)
[2017-05-04] MEDS ORDERED: LEVEMIR FLEX100 U/ML SQ (11:00)
[2017-05-04] MEDS ORDERED: ENTRESTO 24 MG1 EACH PO (11:00)
[2017-05-04] MEDS ORDERED: REFRESH TEARS 330 ML OP ×2 (11:01→11:06)
[2017-05-04] MEDS ORDERED: OMEGA-31 SGL PO (11:01)
[2017-05-04] MEDS ORDERED: ANTI-DIARRHEAL2 MG PO (11:02)
[2017-05-04] MEDS ORDERED: BACTROBAN15 GM TOP (11:02)
[2017-05-04] MEDS ORDERED: MONISTAT TOP (11:03)
[2017-05-04] MEDS ORDERED: ATIVAN 0.50.5 MG/TAB PO (11:04)
[2017-05-04] MEDS ORDERED: DEMADEX10 MG PO (11:04)
[2017-05-04] MEDS ORDERED: KENALOG 60 ML60 M1 TP (11:05)
[2017-05-04] MEDS ORDERED: PROTONIX 40MG T40 MG PO (11:06)
[2017-05-04] MEDS ORDERED: DILAUDID 2MG TAB2 MG PO (11:07)
[2017-05-04 14:35] VITALS: BP 113/68; PULSE 93
== END 2017-05-04 13:05 | disposition home or self-care (01) ==
LOC: SDCO 09:42
DX: T18.2XXA Foreign body in stomach, initial encounter (principal); K22.0 Achalasia of cardia; R13.12 Dysphagia, oropharyngeal phase; K21.9 Gastro-esophageal reflux disease without esophagitis; E11.9 Type 2 diabetes mellitus without complications; F32.9 Major depressive disorder, single episode, unspecified; Z79.4 Long term (current) use of insulin; Z79.84 Long term (current) use of oral hypoglycemic drugs
CPT/HCPCS: B4087; J0585; J2250; J3010; J7030

== ENCOUNTER → 2017-05-14 | Outpatient (CLI) | payer MEDICARE, MEDICAID ==
[~2017-05-14] MED LIST changes: +ANTI-DIARRHEAL2 MG PO; +ASPIRIN 81M81 MG/TA2 PO; +ATIVAN 0.50.5 MG/TAB PO; +BACTROBAN15 GM TOP; +BOOST PLUS 240240 ML PEG; +DEMADEX10 MG PO; +ISOSORBIDE MON120 MG PO; +KENALOG 60 ML60 M1 TP; +LEVEMIR FLEX100 U/ML SQ; +MONISTAT TOP; +OMEGA-31 SGL PO; +PLAVIX 75MG TAB75 MG PO; +PROTONIX 40MG T40 MG PO; +RANEXA1000 MG PO; +REFRESH TEARS 330 ML OP; +TIROSINT150 MC1 PO
== END ==
LOC: ZCOL.LAB 13:34
DX: T46.0X1A Poisoning by cardiac-stimulant glycosides and drugs of similar action, accidental (unintentional), initial encounter (principal); E11.65 Type 2 diabetes mellitus with hyperglycemia

== ENCOUNTER → 2017-05-15 | Outpatient (CLI) | payer MEDICARE, MEDICAID | LOC: ZCOL.LAB 03:35 | DX: E11.65 Type 2 diabetes mellitus with hyperglycemia (principal) ==

== ENCOUNTER → 2017-06-22 | Outpatient (CLI) | payer MEDICARE, MEDICAID ==
[2017-06-22 13:26] LABS: CALCIUM 9.2 mg/dL (8.4-10.2); CREATININE, serum 0.91 mg/dL (0.66-1.25); POTASSIUM 3.9 mmol/L (3.4-5.0)
== END ==
LOC: ZCOL.LAB 10:49
PROVIDERS: Internal Medicine
DX: I50.23 Acute on chronic systolic (congestive) heart failure (principal)

== ENCOUNTER 2017-07-27 14:13 | Emergency (ER) | payer MEDICARE, MEDICAID ==
[~2017-07-27] VITALS: Ht 180.3 cm; Wt 90.9 kg
[2017-07-27 14:20] VITALS: TEMP 98.3
[2017-07-27 14:52] LABS: BASO % 0.5 % (0.0-2.0); EOS # 0.2 (0.0-0.7); GRAN # 4.7 (1.4-6.5); GRAN % 58.8 % (42.2-75.2); HEMATOCRIT 44.2 % (42.0-52.0); HEMOGLOBIN 15.5 g/dl (13.5-18.0); LYMPH # 2.3 (1.2-3.4); LYMPH % 28.9 % (20.0-51.0); MEAN CELL VOLUME 94 fl (80.0-100.0); MEAN CORPUSCULAR HEMOGLOBIN 33 pg (27.0-31.0); MEAN CORPUSCULAR HGB CONC 35 g/dl (33.0-37.0); MEAN PLATELET VOLUME 10.2 fl (7.4-10.4); MONO # 0.7 (0.1-0.6); MONO % 8.8 % (1.7-9.3); PLATELET COUNT 145 K/mm3 (130-400); RED BLOOD COUNT 4.72 M/mm3 (4.20-5.60)
[2017-07-27 14:56] LABS: INR 1.1 (0.8-3.0); PROTHROMBIN TIME 12.2 SECONDS (9.7-12.8)
[2017-07-27 14:58] LABS: PARTIAL THROMBOPLASTIN TIME 30.6 SECONDS (26.0-37.0)
[2017-07-27 15:03] LABS: ALANINE AMINOTRANSFERASE 23 U/L (21-72); ALBUMIN 4.3 gm/dL (3.5-5.0); ALKALINE PHOSPHATASE 61 U/L (50-136); ANION GAP 12 mmol/L (7-16); BILIRUBIN,TOTAL 1.2 mg/dL (0.0-1.0); BLOOD UREA NITROGEN 19 mg/dL (9-20); CALCIUM 9.2 mg/dL (8.4-10.2); CARBON DIOXIDE 27 mmol/L (22-30); CHLORIDE 100 mmol/L (98-107); CREATININE, serum 0.86 mg/dL (0.66-1.25); GLUCOSE 163 mg/dL (74-106); POTASSIUM 4.4 mmol/L (3.4-5.0); SODIUM 139 mmol/L (137-145)
[2017-07-27 15:13] LABS: B-TYPE NATRIURETIC PEPTIDE 75 pg/mL (0-125)
[2017-07-27 15:14] LABS: TROPONIN-I < 0.012 ng/mL (0.000-0.034)
[2017-07-27] MEDS ORDERED: NOVOLOG FLEX100 U/ML SQ (15:17)
[2017-07-27] MEDS ORDERED: AMITIZA24 MCG PO (15:17)
[2017-07-27] MEDS ORDERED: RANEXA1000 MG PO (15:18)
[2017-07-27] MEDS ORDERED: ISOSORBIDE MON120 MG PO (15:18)
[2017-07-27] MEDS ORDERED: ENTRESTO 24 MG1 EACH PO (15:27)
[2017-07-27] MEDS ORDERED: LEVEMIR100 U/ML SQ (15:28)
[2017-07-27] MEDS ORDERED: OMEGA-31 SGL PO (15:29)
[2017-07-27] MEDS ORDERED: DEMADEX10 MG PO (15:30)
[2017-07-27] MEDS ORDERED: SYNTHROID 0.10.15 MG PO (15:30)
[2017-07-27] MEDS ORDERED: BOOST PLUS 240240 ML PEG (15:30)
[2017-07-27] MEDS ORDERED: ASPIRIN 81M81 MG/TA2 PO (15:33)
[2017-07-27] MEDS ORDERED: LIPITOR 80MG80 MG PO (15:33)
[2017-07-27] MEDS ORDERED: COGENTIN .0.5 MG/TAB PO (15:34)
[2017-07-27] MEDS ORDERED: PLAVIX 75MG TAB75 MG PO (15:34)
[2017-07-27] MEDS ORDERED: PEPCID 20MG TAB20 MG PEG (15:34)
[2017-07-27] MEDS ORDERED: ABILIFY 10MG TA10 MG PEG (15:35)
[2017-07-27] MEDS ORDERED: COREG12.5 MG PEG (15:35)
[2017-07-27] MEDS ORDERED: KLONOPIN2 MG PEG (15:36)
[2017-07-27] MEDS ORDERED: LANOXIN 0.120.125 MG PEG (15:37)
[2017-07-27] MEDS ORDERED: PROTONIX 40MG T40 MG PO (15:44)
[2017-07-27] MEDS ORDERED: SYMMETREL50 MG/5 ML PEG (15:45)
[2017-07-27] MEDS ORDERED: CYMBALTA 30MG30 MG PO (15:48)
[2017-07-27] MEDS ORDERED: SINEMET 25/101 UDTAB PEG (15:48)
[2017-07-27] MEDS ORDERED: ALDACTONE 25MG25 M1 PEG (15:49)
[2017-07-27] MEDS ORDERED: DILAUDID 2MG TAB2 MG PEG (15:50)
[2017-07-27] MEDS ORDERED: DULCOLAX TAB5 MG PO (15:52)
[2017-07-27] MEDS ORDERED: ATIVAN 0.50.5 MG/TAB PO (15:53)
[2017-07-27] MEDS ORDERED: ZOFRAN ODT4 MG PO (15:54)
[2017-07-27] MEDS ORDERED: NITROSTAT0.4 MG/TAB SL (15:54)
[2017-07-27 18:45] VITALS: BP 120/82; PULSE 83
== END 2017-07-27 18:48 | disposition home or self-care (01) ==
LOC: COL.ER 14:13
PROVIDERS: Emergency Medicine
DX: R07.89 Other chest pain (principal); G89.29 Other chronic pain; I10 Essential (primary) hypertension; E11.9 Type 2 diabetes mellitus without complications; E03.9 Hypothyroidism, unspecified; I50.9 Heart failure, unspecified; J44.9 Chronic obstructive pulmonary disease, unspecified; K21.9 Gastro-esophageal reflux disease without esophagitis; F31.9 Bipolar disorder, unspecified; F20.9 Schizophrenia, unspecified; G20 Parkinson's disease; Z95.5 Presence of coronary angioplasty implant and graft; Z79.4 Long term (current) use of insulin; Z79.02 Long term (current) use of antithrombotics/antiplatelets
CPT/HCPCS: J1170; J1885; J2405

== ENCOUNTER → 2017-09-19 | Outpatient (CLI) | payer MEDICARE, MEDICAID ==
[~2017-09-19] MED LIST changes: +IMODIUM 2MG CAPS2 MG PO; +SINEMET 25/101 UDTAB PEG; +SYMMETREL50 MG/5 ML PEG
[2017-09-19 03:48] LABS: CALCIUM 8.8 mg/dL (8.4-10.2); CREATININE, serum 0.78 mg/dL (0.66-1.25); POTASSIUM 3.9 mmol/L (3.4-5.0)
== END ==
LOC: ZCOL.LAB 01:35
PROVIDERS: Internal Medicine
DX: R79.89 Other specified abnormal findings of blood chemistry (principal)

== ENCOUNTER → 2017-10-11 | Outpatient (CLI) | payer MEDICARE, MEDICAID ==
[2017-10-11 04:11] LABS: THYROID STIMULATING HORMONE 1.16 uIU/mL (0.465-4.680)
== END ==
LOC: ZCOL.LAB 03:28
PROVIDERS: Internal Medicine
DX: N18.9 Chronic kidney disease, unspecified (principal); E03.9 Hypothyroidism, unspecified

== ENCOUNTER → 2017-11-12 | Outpatient (REF) | LOC: ZCOL.LAB 13:31 | DX: I50.23 Acute on chronic systolic (congestive) heart failure (principal); E11.65 Type 2 diabetes mellitus with hyperglycemia ==

== ENCOUNTER 2017-11-13 08:50 | Inpatient (IN) | payer MEDICARE, MEDICAID ==
[~2017-11-13] VITALS: Ht 180.3 cm; Wt 93.6 kg
[2017-11-13 09:13] LABS: HEMATOCRIT 45.3 % (42.0-52.0); HEMOGLOBIN 15.4 g/dl (13.5-18.0); MEAN CELL VOLUME 92 fl (80.0-100.0); MEAN CORPUSCULAR HEMOGLOBIN 31 pg (27.0-31.0); MEAN CORPUSCULAR HGB CONC 34 g/dl (33.0-37.0); MEAN PLATELET VOLUME 10.2 fl (7.4-10.4); PLATELET COUNT 105 K/mm3 (130-400); REDCELL DISTRIBUTION WIDTH-CV 13.3 % (11.5-14.5)
[2017-11-13 09:16] LABS: INR 1.1 (0.8-3.0); PROTHROMBIN TIME 12.6 SECONDS (9.7-12.8)
[2017-11-13 09:18] LABS: PARTIAL THROMBOPLASTIN TIME 31.7 SECONDS (26.0-37.0)
[2017-11-13 09:30] LABS: ALANINE AMINOTRANSFERASE 52 U/L (21-72); ALBUMIN 4.6 gm/dL (3.5-5.0); ALKALINE PHOSPHATASE 67 U/L (50-136); ANION GAP 12 mmol/L (7-16); AST,SGOT 35 U/L (15-37); BILIRUBIN,TOTAL 0.9 mg/dL (0.0-1.0); BLOOD UREA NITROGEN 15 mg/dL (9-20); CARBON DIOXIDE 28 mmol/L (22-30); CHLORIDE 100 mmol/L (98-107); CREATININE, serum 0.81 mg/dL (0.66-1.25); GLUCOSE 181 mg/dL (74-106); SODIUM 140 mmol/L (137-145)
[2017-11-13 09:43] LABS: TROPONIN-I < 0.012 ng/mL (0.000-0.034)
[2017-11-13 09:44] LABS: BAND 9 % (0-10); LYMPHOCYTE 38 % (20.0-51.0); NEUTROPHILS 41 % (42.0-75.2); PLATELET ESTIMATE DECREASED (NORMAL)
[2017-11-13] MEDS ORDERED: COLACE 100100 MG/CAP PO (16:03)
[2017-11-13] MEDS ORDERED: DULCOLAX TAB5 MG PO (16:06)
[2017-11-13 16:13] VITALS: BP 127/68; PULSE 87; TEMP 97.9
[2017-11-13 16:19] VITALS: BP 127/68; PULSE 89; TEMP 98
[2017-11-13 17:28] LABS: DIGOXIN 0.7 ng/mL (0.8-2.0)
[2017-11-13 17:34] LABS: TROPONIN-I < 0.012 ng/mL (0.000-0.034)
[2017-11-13 20:18] VITALS: BP 140/82; PULSE 97; TEMP 98.8
[2017-11-14 02:18] VITALS: BP 137/74; PULSE 94; TEMP 98.3
[2017-11-14 07:05] LABS: BASO % 0.5 % (0.0-2.0); EOS % 1.1 % (0-4.0); GRAN # 1.4 (1.4-6.5); GRAN % 37.1 % (42.2-75.2); HEMATOCRIT 49.1 % (42.0-52.0); HEMOGLOBIN 16.5 g/dl (13.5-18.0); LYMPH # 1.6 (1.2-3.4); LYMPH % 44.9 % (20.0-51.0); MEAN CELL VOLUME 94 fl (80.0-100.0); MEAN CORPUSCULAR HEMOGLOBIN 32 pg (27.0-31.0); MEAN CORPUSCULAR HGB CONC 34 g/dl (33.0-37.0); MEAN PLATELET VOLUME 10.5 fl (7.4-10.4); MONO # 0.6 (0.1-0.6); MONO % 15.3 % (1.7-9.3); PLATELET COUNT 103 K/mm3 (130-400); RED BLOOD COUNT 5.21 M/mm3 (4.20-5.60); REDCELL DISTRIBUTION WIDTH-CV 13.4 % (11.5-14.5)
[2017-11-14 07:11] LABS: CHOLESTEROL 142 mg/dL (120-200); CHOLESTEROL RISK RATIO 5.2; HDL CHOLESTEROL 27 mg/dL; LDL CHOLESTEROL 64 mg/dL; TRIGLYCERIDE 254 mg/dL
[2017-11-14 07:16] LABS: ALBUMIN 4.3 gm/dL (3.5-5.0); BILIRUBIN,TOTAL 0.7 mg/dL (0.0-1.0); CREATININE, serum 0.83 mg/dL (0.66-1.25); PHOSPHOROUS 4.5 mg/dL (2.5-4.5); POTASSIUM 3.6 mmol/L (3.4-5.0); TOTAL PROTEIN 6.9 gm/dL (6.4-8.2)
[2017-11-14 07:23] LABS: PRE ALBUMIN 29.3 mg/dL (17.6-36.0)
[2017-11-14 07:25] LABS: TROPONIN-I < 0.012 ng/mL (0.000-0.034)
[2017-11-14 07:30] VITALS: BP 127/71; PULSE 93; TEMP 98.5
[2017-11-14 08:31] LABS: PATHOLOGY DIFF REVIEW OK
[2017-11-14 08:40] VITALS: BP 128/78; PULSE 98; TEMP 98.5
[2017-11-14 11:00] VITALS: BP 99/63; PULSE 96; TEMP 97.9
[2017-11-14 11:32] VITALS: BP 98/66
[2017-11-14 12:43] LABS: ARTERIAL BLD GAS O2 SATURATION 93.2 % (92-100); ARTERIAL BLD GAS TCO2 CT 25.3; ARTERIAL BLOOD GAS BASE EXCESS 0.3 (-2-2); ARTERIAL BLOOD GAS HCO3 24.2 meq/L (22-26); ARTERIAL BLOOD GAS PO2 69.2 mmHg (80-100); ARTERIAL BLOOD GAS pH 7.43 (7.35-7.45)
[2017-11-14] MEDS ORDERED: VOLTAREN GEL 1%1 TU TP (14:53)
[2017-11-14] MEDS ORDERED: DILAUDID 2MG TAB2 MG PEG (14:55)
== END 2017-11-14 16:30 | DRG 206 ==
LOC: COL.ER 08:50 → MEDICAL 13:14 → COL.ER 13:14 → MEDICAL 15:00
PROVIDERS: Emergency Medicine; Nurse Practitioner Family; Physician Assistant
DX: M94.0 Chondrocostal junction syndrome [Tietze] (principal); I50.22 Chronic systolic (congestive) heart failure; I25.10 Atherosclerotic heart disease of native coronary artery without angina pectoris; Z95.5 Presence of coronary angioplasty implant and graft; E11.9 Type 2 diabetes mellitus without complications; I11.0 Hypertensive heart disease with heart failure; F20.9 Schizophrenia, unspecified; G20 Parkinson's disease; J44.9 Chronic obstructive pulmonary disease, unspecified; Z95.810 Presence of automatic (implantable) cardiac defibrillator; I25.5 Ischemic cardiomyopathy; F31.9 Bipolar disorder, unspecified
CPT/HCPCS: 99222-AI; 99239; J1644; J1815; J2270

== ENCOUNTER → 2017-11-28 | Outpatient (CLI) | payer MEDICARE, MEDICAID ==
[~2017-11-28] MED LIST changes: +VOLTAREN GEL 1%1 TU TP
[2017-11-28 09:00] LABS: BASO % 0.5 % (0.0-2.0); EOS # 0.1 (0.0-0.7); EOS % 1.9 % (0-4.0); GRAN # 4.3 (1.4-6.5); GRAN % 57.8 % (42.2-75.2); HEMATOCRIT 44.4 % (42.0-52.0); HEMOGLOBIN 15.2 g/dl (13.5-18.0); LYMPH # 2.3 (1.2-3.4); LYMPH % 30.6 % (20.0-51.0); MEAN CELL VOLUME 92 fl (80.0-100.0); MEAN CORPUSCULAR HEMOGLOBIN 31 pg (27.0-31.0); MEAN CORPUSCULAR HGB CONC 34 g/dl (33.0-37.0); MEAN PLATELET VOLUME 10.5 fl (7.4-10.4); MONO # 0.6 (0.1-0.6); MONO % 8.1 % (1.7-9.3); PLATELET COUNT 168 K/mm3 (130-400); RED BLOOD COUNT 4.84 M/mm3 (4.20-5.60); REDCELL DISTRIBUTION WIDTH-CV 13.1 % (11.5-14.5)
[2017-11-28 09:19] LABS: ALBUMIN 3.9 gm/dL (3.5-5.0); BILIRUBIN,TOTAL 0.7 mg/dL (0.0-1.0); CALCIUM 8.9 mg/dL (8.4-10.2); CREATININE, serum 0.76 mg/dL (0.66-1.25); TOTAL PROTEIN 6.1 gm/dL (6.4-8.2)
== END ==
LOC: ZCOL.LAB 08:52
PROVIDERS: Internal Medicine
DX: I50.23 Acute on chronic systolic (congestive) heart failure (principal)

== ENCOUNTER → 2017-12-14 | Outpatient (REF) | LOC: ZCOL.LAB 12:06 | DX: I48.0 Paroxysmal atrial fibrillation (principal) ==

== ENCOUNTER → 2017-12-21 | Outpatient (REF) ==
[2017-12-21 13:39] LABS: CALCIUM 9.2 mg/dL (8.4-10.2); CREATININE, serum 0.95 mg/dL (0.66-1.25)
== END ==
LOC: ZCOL.LAB 12:44
PROVIDERS: Internal Medicine
DX: I50.23 Acute on chronic systolic (congestive) heart failure (principal)

== ENCOUNTER → 2018-02-07 | Outpatient (CLI) | payer MEDICARE, MEDICAID ==
[2018-02-07 12:53] LABS: BASO % 0.7 % (0.0-2.0); EOS # 0.1 (0.0-0.7); EOS % 2.2 % (0-4.0); GRAN # 3.3 (1.4-6.5); GRAN % 56.2 % (42.2-75.2); HEMATOCRIT 43.3 % (42.0-52.0); HEMOGLOBIN 15.3 g/dl (13.5-18.0); LYMPH # 1.6 (1.2-3.4); LYMPH % 28.2 % (20.0-51.0); MEAN CELL VOLUME 92 fl (80.0-100.0); MEAN CORPUSCULAR HEMOGLOBIN 33 pg (27.0-31.0); MEAN CORPUSCULAR HGB CONC 35 g/dl (33.0-37.0); MEAN PLATELET VOLUME 10.9 fl (7.4-10.4); MONO # 0.7 (0.1-0.6); MONO % 11.3 % (1.7-9.3); PLATELET COUNT 149 K/mm3 (130-400); RED BLOOD COUNT 4.69 M/mm3 (4.20-5.60); REDCELL DISTRIBUTION WIDTH-CV 12.9 % (11.5-14.5)
[2018-02-07 13:13] LABS: ERYTHROCYTE SEDIMENTATION RATE 2 mm/hr (0-30)
[2018-02-07 13:48] LABS: BILIRUBIN,TOTAL 0.9 mg/dL (0.0-1.0); CALCIUM 9.6 mg/dL (8.4-10.2); CHOLESTEROL RISK RATIO 4.6; CREATININE, serum 0.83 mg/dL (0.66-1.25); POTASSIUM 3.5 mmol/L (3.4-5.0); TOTAL PROTEIN 6.7 gm/dL (6.4-8.2)
[2018-02-07 14:17] LABS: PSA-TOTAL 0.84 ng/mL (0-4)
== END ==
LOC: ZCOL.LAB 12:04
PROVIDERS: Internal Medicine
DX: I11.0 Hypertensive heart disease with heart failure (principal); E11.65 Type 2 diabetes mellitus with hyperglycemia
CPT/HCPCS: G0103

== ENCOUNTER → 2018-02-11 | Outpatient (CLI) | payer MEDICARE, MEDICAID | LOC: ZCOL.LAB 11:55 | DX: E11.65 Type 2 diabetes mellitus with hyperglycemia (principal) ==

== ENCOUNTER 2018-03-14 11:35 | Emergency (ER) | payer MEDICARE, MEDICAID ==
[2009-06-25 08:46] VITALS: BP 124/79
[~2018-03-14] VITALS: Ht 180.3 cm; Wt 95.5 kg
[2018-03-14 11:41] VITALS: TEMP 98
[2018-03-14 13:19] LABS: BASO % 0.5 % (0.0-2.0); EOS # 0.1 (0.0-0.7); EOS % 1.7 % (0-4.0); GRAN # 3.8 (1.4-6.5); GRAN % 59.6 % (42.2-75.2); HEMATOCRIT 42.4 % (42.0-52.0); HEMOGLOBIN 15.1 g/dl (13.5-18.0); LYMPH # 1.7 (1.2-3.4); LYMPH % 27.2 % (20.0-51.0); MEAN CELL VOLUME 93 fl (80.0-100.0); MEAN CORPUSCULAR HEMOGLOBIN 33 pg (27.0-31.0); MEAN CORPUSCULAR HGB CONC 36 g/dl (33.0-37.0); MONO # 0.6 (0.1-0.6); MONO % 9.6 % (1.7-9.3); PLATELET COUNT 133 K/mm3 (130-400); RED BLOOD COUNT 4.56 M/mm3 (4.20-5.60); REDCELL DISTRIBUTION WIDTH-CV 12.8 % (11.5-14.5)
[2018-03-14 13:23] LABS: CALCIUM 9.5 mg/dL (8.4-10.2); CREATININE, serum 0.75 mg/dL (0.66-1.25); POTASSIUM 4.3 mmol/L (3.4-5.0)
[2018-03-14 14:16] VITALS: BP 115/74; PULSE 90
== END 2018-03-14 14:27 | disposition home or self-care (01) ==
LOC: COL.ER 11:35
PROVIDERS: Emergency Medicine
DX: S16.1XXA Strain of muscle, fascia and tendon at neck level, initial encounter (principal); S00.93XA Contusion of unspecified part of head, initial encounter; I10 Essential (primary) hypertension; I25.10 Atherosclerotic heart disease of native coronary artery without angina pectoris; J44.9 Chronic obstructive pulmonary disease, unspecified; E11.9 Type 2 diabetes mellitus without complications; Z79.82 Long term (current) use of aspirin; Z79.4 Long term (current) use of insulin; W01.0XXA Fall on same level from slipping, tripping and stumbling without subsequent striking against object, initial encounter; Y92.129 Unspecified place in nursing home as the place of occurrence of the external cause

== ENCOUNTER → 2018-03-21 | Outpatient (REF) | LOC: ZLAB.STJ 15:01 | DX: M54.5 Low back pain (principal) ==

== ENCOUNTER → 2018-04-19 | Outpatient (REF) ==
[2018-04-19 11:29] LABS: ALBUMIN 4.1 gm/dL (3.5-5.0); BILIRUBIN,TOTAL 0.9 mg/dL (0.0-1.0); CALCIUM 9.4 mg/dL (8.4-10.2); CHOLESTEROL RISK RATIO 4.6; CREATININE, serum 0.78 mg/dL (0.66-1.25); POTASSIUM 4.3 mmol/L (3.4-5.0); TOTAL PROTEIN 6.4 gm/dL (6.4-8.2)
== END ==
LOC: ZCOL.LAB 11:08
PROVIDERS: Internal Medicine
DX: Z01.89 Encounter for other specified special examinations (principal)

== ENCOUNTER 2018-05-08 13:53 | Day surgery (SDC) | payer MEDICARE, MEDICAID ==
[2009-06-25 08:46] VITALS: BP 124/79
[~2018-05-08] VITALS: Ht 180.3 cm; Wt 96.3 kg
[2018-05-08 14:32] VITALS: BP 118/78; PULSE 94; TEMP 97.8
[2018-05-08] MEDS ORDERED: BACTROBAN15 GM TOP (14:56)
[2018-05-08] MEDS ORDERED: REFRESH TEARS 330 ML OP (14:57)
[2018-05-08] MEDS ORDERED: BOOST PLUS 240240 ML PEG (14:58)
[2018-05-08] MEDS ORDERED: BIOTENE MOIST44.3 ML PO (15:00)
[2018-05-08] MEDS ORDERED: ROXANOL 20MG20 MG/ML SL (15:02)
[2018-05-08 15:21] VITALS: BP 121/73; PULSE 96; TEMP 98.1
[2018-05-08 15:35] VITALS: BP 110/70; PULSE 94
[2018-05-08 15:50] VITALS: BP 117/77; PULSE 94
== END 2018-05-08 16:00 | disposition home or self-care (01) ==
LOC: SDCO 13:53
DX: K94.23 Gastrostomy malfunction (principal)
CPT/HCPCS: OP; B4087

== ENCOUNTER → 2018-05-13 | Outpatient (REF) ==
[~2018-05-13] MED LIST changes: +BIOTENE MOIST44.3 ML PO; +ROXANOL 20MG20 MG/ML SL
== END ==
LOC: ZCOL.LAB 11:00
DX: I25.110 Atherosclerotic heart disease of native coronary artery with unstable angina pectoris (principal); E11.65 Type 2 diabetes mellitus with hyperglycemia

== ENCOUNTER → 2018-08-12 | Outpatient (REF) | LOC: ZCOL.LAB 11:20 | DX: E11.65 Type 2 diabetes mellitus with hyperglycemia (principal) ==

== ENCOUNTER → 2018-09-26 | Outpatient (CLI) | payer MEDICARE, MEDICAID ==
[2018-09-26 13:41] LABS: BASO % 0.4 % (0.0-2.0); EOS # 0.1 (0.0-0.7); EOS % 2.3 % (0-4.0); GRAN # 3.1 (1.4-6.5); GRAN % 58.8 % (42.2-75.2); HEMATOCRIT 46.5 % (42.0-52.0); LYMPH # 1.5 (1.2-3.4); LYMPH % 28.2 % (20.0-51.0); MEAN CELL VOLUME 93 fl (80.0-100.0); MEAN CORPUSCULAR HEMOGLOBIN 32 pg (27.0-31.0); MEAN CORPUSCULAR HGB CONC 34 g/dl (33.0-37.0); MEAN PLATELET VOLUME 10.9 fl (7.4-10.4); MONO # 0.5 (0.1-0.6); MONO % 9.5 % (1.7-9.3); PLATELET COUNT 130 K/mm3 (130-400); RED BLOOD COUNT 4.99 M/mm3 (4.20-5.60); REDCELL DISTRIBUTION WIDTH-CV 12.5 % (11.5-14.5)
[2018-09-26 13:47] LABS: ALBUMIN 3.8 gm/dL (3.5-5.0); BILIRUBIN,TOTAL 0.7 mg/dL (0.0-1.0); CALCIUM 9.1 mg/dL (8.4-10.2); CHOLESTEROL RISK RATIO 4.8; CREATININE, serum 0.78 mg/dL (0.66-1.25); MAGNESIUM 1.8 mg/dL (1.6-2.3); POTASSIUM 4.5 mmol/L (3.4-5.0); TOTAL PROTEIN 6.1 gm/dL (6.4-8.2)
[2018-09-26 14:08] LABS: ERYTHROCYTE SEDIMENTATION RATE 1 mm/hr (0-30)
[2018-09-26 14:17] LABS: THYROID STIMULATING HORMONE 0.836 uIU/mL (0.465-4.680)
== END ==
LOC: ZCOL.LAB 11:51
PROVIDERS: Internal Medicine
DX: E11.65 Type 2 diabetes mellitus with hyperglycemia (principal); I25.10 Atherosclerotic heart disease of native coronary artery without angina pectoris; N18.9 Chronic kidney disease, unspecified

== ENCOUNTER → 2018-11-11 | Outpatient (REF) | LOC: ZCOL.LAB 11:42 | DX: E11.65 Type 2 diabetes mellitus with hyperglycemia (principal) ==

== ENCOUNTER 2019-01-12 15:10 | Inpatient (IN) | payer MEDICARE, MEDICAID ==
[~2019-01-12] VITALS: Ht 180.3 cm; Wt 92.8 kg
[2019-01-12 18:41] LABS: BASO % 0.3 % (0.0-2.0); EOS # 0.1 (0.0-0.7); EOS % 1.5 % (0-4.0); GRAN # 5.4 (1.4-6.5); GRAN % 69.2 % (42.2-75.2); HEMATOCRIT 44.9 % (42.0-52.0); HEMOGLOBIN 15.4 g/dl (13.5-18.0); LYMPH # 1.5 (1.2-3.4); LYMPH % 18.9 % (20.0-51.0); MEAN CELL VOLUME 92 fl (80.0-100.0); MEAN CORPUSCULAR HEMOGLOBIN 31 pg (27.0-31.0); MEAN CORPUSCULAR HGB CONC 34 g/dl (33.0-37.0); MEAN PLATELET VOLUME 10.4 fl (7.4-10.4); MONO # 0.8 (0.1-0.6); MONO % 9.6 % (1.7-9.3); PLATELET COUNT 119 K/mm3 (130-400); REDCELL DISTRIBUTION WIDTH-CV 13.2 % (11.5-14.5)
[2019-01-12 18:48] LABS: INR 1.2 (0.8-3.0); PROTHROMBIN TIME 13.7 SECONDS (9.7-12.8)
[2019-01-12 18:57] LABS: ALBUMIN 3.8 gm/dL (3.5-5.0); BILIRUBIN,TOTAL 1.1 mg/dL (0.0-1.0); CALCIUM 9.3 mg/dL (8.4-10.2); CREATININE, serum 0.77 (0.66-1.25); POTASSIUM 4.2 mmol/L (3.4-5.0); TOTAL PROTEIN 6.6 gm/dL (6.4-8.2)
[2019-01-12 19:04] LABS: PRE ALBUMIN 19.7 mg/dL (17.6-36.0)
[2019-01-12 19:24] LABS: COLLECTION METHOD CATHETER
[2019-01-12 19:35] LABS: PH 6 (5-8); SQUAMOUS EPITHELIAL None Seen /hpf; URINE APPEARANCE Clear; URINE BACTERIA None Seen /hpf; URINE BILIRUBIN Negative (NEGATIVE); URINE BLOOD 1+ (NEGATIVE); URINE COLOR Amber; URINE GLUCOSE Negative (NEGATIVE); URINE KETONE Trace (NEGATIVE); URINE LEUKOCYTE ESTERASE Negative (NEGATIVE); URINE NITRATE Negative (NEGATIVE); URINE PROTEIN(semi-quant) Negative (NEGATIVE); URINE UROBILINOGEN >=4.0 mg/dL (NEGATIVE)
[2019-01-12] MEDS ORDERED: TRIAMCINOLONE A15 GM TP (19:36)
--- NOTE | 2019-01-12 20:25 | NUR ---
RECEIVED PATIENT FROM ER STAFF VIA [employer]. ADMISSION ASSESSMENT COMPLETE. A&OX3. VS STABLE. STATES PAIN IN RIGHT HIP IS BETTER AFTER IV PAIN MEDICATION. ORIENTED TO ROOM AND FLOOR. INSTRUCTION GIVEN NURSE HEALTHCARE MANAGER LIGHT SYSTEM. GRESHAM CATH DRAINING TEA COLORED URINE. PLAN OF CARE DISCUSSED FOR SURGICAL INTERVENTION, PAIN CONTROL AND POSITIONING. VERBALIZES UNDERSTANDING AND DENIES QUESTIONS AT THIS TIME. CALL LIGHT WITHIN REACH. BED IN LOW POSITION, WHEELS LOCKED. WILL CONTINUE TO MONITOR.
[2019-01-12 20:28] VITALS: BP 138/69; PULSE 102; TEMP 98.3
[2019-01-12 21:57] LABS: DIGOXIN 0.5 ng/mL (0.8-2.0)
[2019-01-12 22:05] LABS: TSH w REFLEX 1.73 uIU/mL (0.465-4.680)
[2019-01-12 23:36] VITALS: BP 128/68; PULSE 100; TEMP 98.9
[2019-01-13] VITALS (11 sets, daily range): BP systolic 108–146; BP diastolic 61–79; PULSE 99–116; TEMP 97.8–98.7
--- NOTE | 2019-01-13 05:35 | NUR ---
HAS SLEPT OFF AND ON THIS SHIFT. DID C/O PAIN TWICE-MORPHINE GIVEN PER DR ORDER WITH RELIEF. GRESHAM DRAINING A DARK YELLOW URINE-BETTER THAN WHEN ADMITTED- IT WAS TEA COLORED. NS 60MLS/HOUR INFUSING WITHOUT DIFFICULTIES. RIGHT HIP/LEG SUPPORTED BY PILLOWS-FRESH ICE PACK APPLIED. AM MEDICATIONS GIVEN WITH A SIP OF WATER-HAS REMAINED NPO SINCE MIDNI. DENIES ANY QUESTIONS OR CONCERNS AT THIS TIME. CALL LIGHT WITHIN REACH. BED IN LOW POSITION/WHEELS LOCKED. WILL MONITOR
[2019-01-13 06:29] LABS: BASO % 0.3 % (0.0-2.0); EOS # 0.1 (0.0-0.7); EOS % 2.1 % (0-4.0); GRAN # 3.7 (1.4-6.5); GRAN % 61.5 % (42.2-75.2); HEMATOCRIT 45.4 % (42.0-52.0); HEMOGLOBIN 15.2 g/dl (13.5-18.0); LYMPH # 1.5 (1.2-3.4); MEAN CELL VOLUME 94 fl (80.0-100.0); MEAN CORPUSCULAR HEMOGLOBIN 32 pg (27.0-31.0); MEAN CORPUSCULAR HGB CONC 34 g/dl (33.0-37.0); MEAN PLATELET VOLUME 10.5 fl (7.4-10.4); MONO # 0.7 (0.1-0.6); MONO % 11.3 % (1.7-9.3); PLATELET COUNT 114 K/mm3 (130-400); RED BLOOD COUNT 4.81 M/mm3 (4.20-5.60); REDCELL DISTRIBUTION WIDTH-CV 13.2 % (11.5-14.5)
[2019-01-13 06:32] LABS: ALBUMIN 3.7 gm/dL (3.5-5.0); BILIRUBIN,TOTAL 1.2 mg/dL (0.0-1.0); CALCIUM 8.8 mg/dL (8.4-10.2); CREATININE, serum 0.8 (0.66-1.25); TOTAL PROTEIN 6.3 gm/dL (6.4-8.2)
--- NOTE | 2019-01-13 06:45 | NUR ---
MEDICAL CARE ADMINISTRATOR HORSE AND WAGON DRIVER CONTACTED FOR CONSULT. STATES TO CALL DR GRISSOM AT 08. WILL REPORT TO ONCOMING SHIFT.
--- NOTE | 2019-01-13 07:15 | NUR ---
Report received from SANDRA Morelos. PT in bed resting, denies needs, will continue to monitor.
--- NOTE | 2019-01-13 09:00 | NUR ---
Assessment charted. Ptresting in bed, pain rated at 10/10 to R hip, pain medications provided. R hip has ice. G tube clamped to abd. IVF to LH. Pills given with applesauce per request for swallowing issues. Spoke with sharron's team, cardiology, several times, plan for lexiscan afternoon. Will contineu to monitor.
--- NOTE | 2019-01-13 09:01 | NUR ---
SW attended clinical rounds to discuss discharge planning. Patient will be seen by Ortho today about hip fracture. Patient lives at [facility]. Patient's PCP is Dr Lui and he obtains prescriptions from [facility]. Patient uses a walker or wheelchair for mobility but no other DME is reported. Patient reports his sister is his DPOA and there is a copy in the EMR. SW will continue to follow and assist with discharge needs.
--- NOTE | 2019-01-13 10:29 | NUR ---
Initial visit; Aleksandar requested Provider Relations Consultant visit. Provider Relations Consultant offered comfort and prayer and called patient's Day Care Provider for him. Provider Relations Consultant will continue to look in on Aleksandar.
--- NOTE | 2019-01-13 12:00 | NUR ---
TAKING OVER PATIENT'S CARE. RECEIVED REPORT FROM SANDRA BENITEZ.
--- NOTE | 2019-01-13 15:20 | NUR ---
PATIENT GOING DOWN TO [facility].
--- NOTE | 2019-01-14 01:41 | NUR ---
Patient able to eat until midnight. Patient had sandwich, nutrigrain bar, and applesauce. Ate 100% with no difficulty. Swallows pills whole with water. Stated pain 10/10 to groin, "feels like someone is kicking me in the privates." PRN Morphine 4mg given. Patient repositioned. This was effective for pain relief. Patient sleeping well currently. Insulin held d/t NPO status.
[2019-01-14 04:28] VITALS: BP 125/68; PULSE 95; TEMP 97.5
--- NOTE | 2019-01-14 06:54 | NUR ---
Patient slept well throughout the night. Denies needs. Report given to day shift nurse.
[2019-01-14 07:40] VITALS: BP 117/72; PULSE 88; TEMP 98.1
--- NOTE | 2019-01-14 10:00 | NUR ---
HOSPITALIST TEAM ROUNDING ON PATIENT.
--- NOTE | 2019-01-14 10:11 | NUR ---
SW attended clinical rounds. Patient is a moderate-high risk for general anethesia. It is unknown when patient will have surgery. SW followed up with patient with [facility] choice form. Patient would like to return to [facility] upon discharge. Patient attempted to sign choice form but he is unable to because of tremors and weakness. Patient gave verbal consent. SW will fax [facility] updates.
[2019-01-14 11:33] VITALS: BP 100/63; PULSE 89; TEMP 97.8
--- NOTE | 2019-01-14 14:21 | NUR ---
Follow up visit; Patient thanked Funeral Service Licensee for looking in on him and offering prayer and God's blessings.
[2019-01-14 15:46] VITALS: BP 137/77; PULSE 91; TEMP 97.4
[2019-01-14 17:07] LABS: HEMATOCRIT 42.9 % (42.0-52.0); HEMOGLOBIN 14.6 g/dl (13.5-18.0)
--- NOTE | 2019-01-14 19:30 | NUR ---
Pt resting in bed. Pt c/o a headache. PRN Tylenol administered. Pt eating dinner without difficulty. Respirations even and unlabored. Lungs clear. BS+. PEG tube clamped. Kern catheter to dependent drainage. Output is christine, cloudy. Pedal pulses equal 1+. SAV to L leg. SCDs bilaterally. No edema noted. Stage I pressure ulcer noted to coccyx. IVF infusing to LW IV. No needs noted at this time. Will continue to monitor.
[2019-01-14 19:46] VITALS: BP 154/61; PULSE 94; TEMP 98
--- NOTE | 2019-01-14 20:26 | NUR ---
Anesthesia at bedside for preoperative eval. Pt given HS meds. Swallowed pills whole with applesauce without difficulty. Will continue to monitor.
--- NOTE | 2019-01-14 22:00 | NUR ---
Pts catheter leaked and bed was wet. Bed linens and gown changed. Janae and catheter care provided. Kern catheter is free of kinks and draining dark christine, cloudy urine. Pt turned on R.
[2019-01-14 23:31] VITALS: BP 138/69; PULSE 93; TEMP 98.3
[2019-01-15] VITALS (13 sets, daily range): BP systolic 107–140; BP diastolic 37–73; PULSE 64–103; TEMP 98–98.7
--- NOTE | 2019-01-15 01:08 | NUR ---
Pt c/o pain 6/10 in R hip. PRN pain medication administered. Pt repositioned for comfort.
--- NOTE | 2019-01-15 03:30 | NUR ---
Pt c/o pain in low back/flank. Repositioned for comfort. PRN pain medication given. Bed changed. Catheter leaking, but still draining appropriately.
--- NOTE | 2019-01-15 06:30 | NUR ---
Pt is resting this AM. Pt did not sleep well last night d/t pain and discomfort. Pain medication administer as needed. Turn q 2 d/t stage I on coccyx. AM dose of Synthroid crushed and administered via PEG Tube.
[2019-01-15 06:51] LABS: HEMATOCRIT 45.2 % (42.0-52.0); HEMOGLOBIN 15.5 g/dl (13.5-18.0)
[2019-01-15 07:01] LABS: CALCIUM 8.7 mg/dL (8.4-10.2); CREATININE, serum 0.72 (0.66-1.25); MAGNESIUM 1.8 mg/dL (1.6-2.3); POTASSIUM 3.6 mmol/L (3.4-5.0)
--- NOTE | 2019-01-15 07:04 | NUR ---
bedside shift report received from SANDRA Santos
--- NOTE | 2019-01-15 07:30 | NUR ---
Dr Madison in to see patient
--- NOTE | 2019-01-15 08:40 | NUR ---
resting in bed, c/o pain when asked and medicated with morphine 2mg slow IV, full assessment completed, see interventions for further info, am meds given through PEG meds go in easily, repositioned to right side
--- NOTE | 2019-01-15 09:00 | NUR ---
STATIONARY STEAM ENGINEER in and assisted him with am hygiene
--- NOTE | 2019-01-15 10:00 | NUR ---
appears to be dozing, resp quiet and easy
--- NOTE | 2019-01-15 10:39 | NUR ---
SW informed patient will have surgery today. SW will update patient's sister, Nyla, and fax updates to [facility].
--- NOTE | 2019-01-15 10:45 | NUR ---
to surgery per bed
--- NOTE | 2019-01-15 14:15 | NUR ---
remains in surgery
--- NOTE | 2019-01-15 14:55 | NUR ---
returned to room per bed from PACU, awake and alert but very sleepy, IV infusing and placed on pump at 100ml/hr, O2 on at 2L/NC and O2 sats 97%, cai cath patent draining christine colored urine with some sediment, occlusive dressing to right hip CD&I with ice in place, SCDs on bilaterally and SAV hose on left leg, will place SAV hose on right leg now, has presure dressing to right radial artery site that is CD&I, family at bedside and he arouses and says each of their names and then back to sleep, denies needs
--- NOTE | 2019-01-15 15:15 | NUR ---
full assessment completed, assessment unchanged since this am shift assessment, took sip of water
--- NOTE | 2019-01-15 15:30 | NUR ---
awakens easily, stated he thought he was going to intensive care, explained that he did well in surgery and was ok to come back to surgical unit,
--- NOTE | 2019-01-15 16:15 | NUR ---
more awake now and asking for saltine crackers, given am meds first with applesauce and tolerated well, will provide crackers, continues to ask about extrqa care after surgery and again explained he did so well it wasn't needed, denies needs
--- NOTE | 2019-01-15 16:45 | NUR ---
provided saline crackers per his request and assisted him with ordering supper, denies other needs
--- NOTE | 2019-01-15 17:45 | NUR ---
sitting up in bed and having supper with assistance, c/o "bottom" being sore, will reposition
--- NOTE | 2019-01-15 18:40 | NUR ---
bedside shift report given to Tommie Andrew
--- NOTE | 2019-01-15 20:34 | NUR ---
Pt resting in bed, shift assessments complete, left Pt call light in reach, bed in lowest position.
[2019-01-16] VITALS (386 sets, daily range): BP systolic 74–143; BP diastolic 43–96; PULSE 70–130; TEMP 97.5–99.8; O2SAT 81–100
[2019-01-16 06:53] LABS: HEMATOCRIT 42.7 % (42.0-52.0); HEMOGLOBIN 14.7 g/dl (13.5-18.0)
--- NOTE | 2019-01-16 07:50 | NUR ---
Patient in bed resting. Alert and oriented x 3. Shift assessment complete. Kern to dependent drainage with hazy christine urine present, brownish clots noted in tubing. Dressing to right hip is CDI. Pedal pulses intact. SCDs to BLE. Patient slow to answer questions. Take meds whole in apple sauce. States pain 10/10 to hip. Denies further needs at this time.
[2019-01-16 08:08] LABS: BASO % 0.1 % (0.0-2.0); EOS % 0.1 % (0-4.0); GRAN # 7.4 (1.4-6.5); GRAN % 86.8 % (42.2-75.2); HEMOGLOBIN 14.9 g/dl (13.5-18.0); LYMPH # 0.7 (1.2-3.4); LYMPH % 7.8 % (20.0-51.0); MEAN CELL VOLUME 93 fl (80.0-100.0); MEAN CORPUSCULAR HEMOGLOBIN 32 pg (27.0-31.0); MEAN CORPUSCULAR HGB CONC 35 g/dl (33.0-37.0); MEAN PLATELET VOLUME 10.3 fl (7.4-10.4); MONO # 0.4 (0.1-0.6); MONO % 4.7 % (1.7-9.3); PLATELET COUNT 106 K/mm3 (130-400); RED BLOOD COUNT 4.65 M/mm3 (4.20-5.60); REDCELL DISTRIBUTION WIDTH-CV 12.8 % (11.5-14.5)
--- NOTE | 2019-01-16 08:08 | NUR ---
Contacted Carmen PATRICK patient HR at 130. New order for EKG entered, notified RT of order.
[2019-01-16 08:14] LABS: CALCIUM 8.6 mg/dL (8.4-10.2); CREATININE, serum 0.71 (0.66-1.25)
--- NOTE | 2019-01-16 08:44 | NUR ---
Carmen IBRAHIM here to see patient, notified lab of stat troponin
--- NOTE | 2019-01-16 08:56 | NUR ---
Follow-up; Patient just served breakfast. Rn Acute Care wished him a good morning and will return later.
--- NOTE | 2019-01-16 09:05 | NUR ---
Nitro given per orders. Reassessed chest pain, patient states he feels a little better after nitro administration. Notified Carmen IBRAHIM, patient increasingly diaphoretic.
--- NOTE | 2019-01-16 09:24 | NUR ---
SW attended clinical rounds. Patient will move down to the ICU today.
--- NOTE | 2019-01-16 10:00 | NUR ---
Paged Aj IBRAHIM for Ortho
--- NOTE | 2019-01-16 10:29 | NUR ---
REPORT RECEIVED FROM AMADEO ON SURGICAL FLOOR. NURSE STATES SHE WILL ADMINISTER AM MEDS AND COMPLETE AM CHARTING PRIOR TO TRANSFERRING PATIENT TO ICU.
--- NOTE | 2019-01-16 10:30 | NUR ---
Report given to ICU, patient will transfer to ICU bed 1
--- NOTE | 2019-01-16 10:50 | NUR ---
PT BROUGHT DOWN FROM FLOOR ON BED. PT PALE, DIAPHORETIC AND DIFFICULT TO AROUSE. PT ORIENTED AND ANSWERS QUESITONS APPROPRIATELY BUT IS SLOW TO ANSWER. PT'S PULSES WEAK TO EXTREMITIES. PT'S EXRETMITIES PALE AND COOL. PT C/O SEVERE HEADACHE AND PAIN WITH DEEP BREATHING. PT'S INITIAL BP 89/55, HEART RATE 109, RESP 18, O2 95% ON 2L NC. PT'S LUNGS CLEAR TO UPPER LOBES, DIM TO BASES. PT DRENCHED IN SWEAT. PT HAS GRESHAM WITH DARK DINO URINE AND BROWNISH RED CLOTS. DR GARCIA NOTIFIED IMMEDIATELY OF PT'S CONDITION. PROVIDER ON HER WAY DOWN TO ICU TO ASSESS PATIENT. 1100- DR GARCIA ARRIVED. PROVIDER STATES TO GIVE PT 500ML BOLUS, TYLENOL FOR HEADACHE, STAT HEAD CT, AND OBTAIN STAT ECHO. BOLUS STARTED. PT'S BP STILL MAINTAINING 80S/50S.
--- NOTE | 2019-01-16 12:55 | NUR ---
PT'S BP STILL MAINTAINING IN 80'S SYSTOLIC. DR GARCIA NOTIFIED. 500 ML BOLUS ORDERED. PT SET UP FOR CENTRAL LINE INSERTION BY DR GARCIA.
--- NOTE | 2019-01-16 13:25 | NUR ---
CENTRAL LINE PLACED TO LEFT IJ BY DR GARCIA.
--- NOTE | 2019-01-16 14:20 | NUR ---
DR GARCIA NOTIFIED OF PATIENT'S CVP 2-3. PT HEART RATE 120 WITH DOPAMINE GTT AT 10MCG/KG/MIN BUT MAP AT 68. DOPAMINE GTT DECREASED TO 7.5/MCG/KG/MIN TO MAINTAIN MAP AT 66 AND HEART RATE AT 114. 1 LITER BOLUS OF NS ORDERED BY DR GARCIA D/T LOW CVP. DR GARCIA NOTIFIED THAT PATIENT HAVING INCREASED ST DEPRESSION SINCE STARTING DOPAMINE GTT.
[2019-01-16 14:42] LABS: COLLECTION METHOD CATHETER
[2019-01-16 14:49] LABS: PH 5 (5-8); SQUAMOUS EPITHELIAL 0-2 /hpf; URINE APPEARANCE Cloudy; URINE BACTERIA Rare /hpf; URINE BILIRUBIN Negative (NEGATIVE); URINE BLOOD 3+ (NEGATIVE); URINE COLOR Amber; URINE GLUCOSE Negative (NEGATIVE); URINE KETONE Negative (NEGATIVE); URINE LEUKOCYTE ESTERASE 2+ (NEGATIVE); URINE NITRATE Positive (NEGATIVE); URINE PROTEIN(semi-quant) 2+ (NEGATIVE); URINE RBC >50 /hpf; URINE UROBILINOGEN Negative (NEGATIVE); URINE WBC >50 /hpf
--- NOTE | 2019-01-16 14:55 | NUR ---
SPOKE WITH DR GARCIA AND PT'S UA HAS INDICATED THAT PATIENT HAS A URINARY INFECTION AND SHE WOULD LIKE TO SWITCH TO THE SEPSIS PROTOCOL. WILL SWITCH PATIENT TO LEVOPHED IN PLACE OF DOPAMINE AND INITIATE ANTIBIOTICS.
[2019-01-16 15:29] LABS: BASO % 0.2 % (0.0-2.0); EOS % 0.2 % (0-4.0); GRAN # 10.2 (1.4-6.5); GRAN % 84.7 % (42.2-75.2); HEMATOCRIT 37.9 % (42.0-52.0); HEMOGLOBIN 13.3 g/dl (13.5-18.0); LYMPH % 8.6 % (20.0-51.0); MEAN CELL VOLUME 91 fl (80.0-100.0); MEAN CORPUSCULAR HEMOGLOBIN 32 pg (27.0-31.0); MEAN CORPUSCULAR HGB CONC 35 g/dl (33.0-37.0); MONO # 0.7 (0.1-0.6); MONO % 5.8 % (1.7-9.3); PLATELET COUNT 113 K/mm3 (130-400); RED BLOOD COUNT 4.15 M/mm3 (4.20-5.60); REDCELL DISTRIBUTION WIDTH-CV 12.8 % (11.5-14.5)
[2019-01-16 15:41] LABS: ALBUMIN 2.9 gm/dL (3.5-5.0); BILIRUBIN,TOTAL 0.8 mg/dL (0.0-1.0); CALCIUM 7.8 mg/dL (8.4-10.2); POTASSIUM 3.4 mmol/L (3.4-5.0); TOTAL PROTEIN 5.4 gm/dL (6.4-8.2)
[2019-01-16 15:43] LABS: ARTERIAL BLD GAS O2 SATURATION 95.5 % (92-100); ARTERIAL BLD GAS TCO2 CT 24.1; ARTERIAL BLOOD GAS BASE EXCESS -1.5 (-2-2); ARTERIAL BLOOD GAS PCO2 38.1 mmHg (35-45); ARTERIAL BLOOD GAS PO2 82.3 mmHg (80-100)
--- NOTE | 2019-01-16 15:43 | NUR ---
UPON INITIATING LEVOPHED GTT PT'S BP NOW 141/79. GTT INITIATED AT .1MCG/KG/MIN. GTT DECREASED TO 0.07MCG/KG/MIN.
--- NOTE | 2019-01-16 15:49 | NUR ---
GTT PLACED ON STANDBY D/T BP 143/85.
--- NOTE | 2019-01-16 19:45 | NUR ---
Dr. Clemons at bedside to see patient. Concerns for possible fluid overload due to low EF and receiving IV fluids. Patient reported that he feels a shortness of breath that "comes and goes". Currenlty at 2L ranging mid to upper 90's. Instructed to monitor for increasing dyspnea and oxygenation needs. Reported to Dr. Clemons that patient still complainging of a headache; rates it at a 5/10. No new orders for pain at this time. Instructed to reduce IV fluids from 200 ml/hr to 150/hr. Reported CVP is currently 6-7. Will continue to monitor.
--- NOTE | 2019-01-16 20:00 | NUR ---
Increased 02 to 3L NC due to o2 at low 90's. Mauro continue to monitor.
--- NOTE | 2019-01-16 22:48 | NUR ---
Asked about pain level; denied experiencing any pain at this time. Will continue to monitor.
[2019-01-17] VITALS (976 sets, daily range): BP systolic 92–116; BP diastolic 46–73; PULSE 98–115; TEMP 97.8–99.8; O2SAT 83–100
--- NOTE | 2019-01-17 01:15 | NUR ---
Axillary temp of 102.6 noted. Removed excess blankets and turned on fan. Reported elevated temp to Dr. Clemons. Received verbal order to start Tylenol 650 mg q4hr for elevated temp.
--- NOTE | 2019-01-17 03:39 | NUR ---
Axillary temp re-assessed; 99.1 at this time. Will continue to monitor.
[2019-01-17 05:24] LABS: BASO % 0.2 % (0.0-2.0); EOS % 0.2 % (0-4.0); GRAN # 7.6 (1.4-6.5); GRAN % 78.3 % (42.2-75.2); HEMOGLOBIN 11.9 g/dl (13.5-18.0); LYMPH # 1.2 (1.2-3.4); LYMPH % 12.3 % (20.0-51.0); MEAN CELL VOLUME 93 fl (80.0-100.0); MEAN CORPUSCULAR HEMOGLOBIN 32 pg (27.0-31.0); MEAN CORPUSCULAR HGB CONC 34 g/dl (33.0-37.0); MONO # 0.8 (0.1-0.6); MONO % 8.3 % (1.7-9.3); PLATELET COUNT 88 K/mm3 (130-400); RED BLOOD COUNT 3.77 M/mm3 (4.20-5.60); REDCELL DISTRIBUTION WIDTH-CV 13.2 % (11.5-14.5)
[2019-01-17 05:28] LABS: HEMATOCRIT 35.1 % (42.0-52.0)
[2019-01-17 05:29] LABS: INR 1.6 (0.8-3.0); PROTHROMBIN TIME 17.7 SECONDS (9.7-12.8)
[2019-01-17 05:36] LABS: ALBUMIN 2.6 gm/dL (3.5-5.0); BILIRUBIN,TOTAL 1.2 mg/dL (0.0-1.0); CALCIUM 7.8 mg/dL (8.4-10.2); CREATININE, serum 0.72 (0.66-1.25); TOTAL PROTEIN 5.1 gm/dL (6.4-8.2)
--- NOTE | 2019-01-17 07:43 | NUR ---
Follow-up visit; Patient thanked Solution Specialist for offering prayer and bringing him another blanket. Solution Specialist will continue to look in on him.
--- NOTE | 2019-01-17 09:44 | NUR ---
Follow-up visit; Patient thanked Noxious Weeds And Pest Inspector for prayer and getting a blanket for him. Noxious Weeds And Pest Inspector will continue to look in on him.
--- NOTE | 2019-01-17 09:45 | NUR ---
KISHAN and KISHAN student attended clinical rounds. The patient is to be started on peg tube feedings today. SW to fax updates to [facility] and continue to follow.
--- NOTE | 2019-01-17 18:14 | NUR ---
Pt resting in bed denies pain at the time. CVL and cai remains in place, UO continues to be dark. Turned q2. VSS, lungs clear to dim in bases remains on 3L NC at 99%. Family and friends at bedside to visit today. will continue to monitor.
--- NOTE | 2019-01-17 20:30 | NUR ---
Assessment complete; patient awake but slightly drowsy. Follows commands and is cooperative during assessment. Will continue to monitor.
--- NOTE | 2019-01-17 22:30 | NUR ---
Reporting a headache, rates pain as 5/10 and aching. Will administer PRN [place].
[2019-01-18] VITALS (954 sets, daily range): BP systolic 108–132; BP diastolic 56–94; PULSE 88–116; TEMP 98–100; O2SAT 86–100
[2019-01-18 05:31] LABS: BASO % 0.3 % (0.0-2.0); EOS # 0.2 (0.0-0.7); GRAN # 5.6 (1.4-6.5); GRAN % 74.4 % (42.2-75.2); LYMPH % 12.9 % (20.0-51.0); MEAN CELL VOLUME 95 fl (80.0-100.0); MEAN CORPUSCULAR HEMOGLOBIN 32 pg (27.0-31.0); MEAN CORPUSCULAR HGB CONC 33 g/dl (33.0-37.0); MEAN PLATELET VOLUME 10.3 fl (7.4-10.4); MONO # 0.7 (0.1-0.6); MONO % 9.7 % (1.7-9.3); PLATELET COUNT 81 K/mm3 (130-400); REDCELL DISTRIBUTION WIDTH-CV 13.3 % (11.5-14.5)
[2019-01-18 05:36] LABS: INR 1.3 (0.8-3.0); PROTHROMBIN TIME 14.9 SECONDS (9.7-12.8)
[2019-01-18 05:45] LABS: ALBUMIN 2.7 gm/dL (3.5-5.0); BILIRUBIN,TOTAL 0.9 mg/dL (0.0-1.0); CREATININE, serum 0.61 (0.66-1.25); TOTAL PROTEIN 5.2 gm/dL (6.4-8.2)
--- NOTE | 2019-01-18 06:30 | NUR ---
Telemetry notified this nurse that patient's heart rate is in the 120's. Entered pt room to check on patient. Patient was raising his hand to his forehead. Asked if his head hurt and patient stated yes. Unable to rate pain or describe.
--- NOTE | 2019-01-18 07:10 | NUR ---
Oncoming nurse stated will notify hospitalist regarding elevated heart rate. Will administer PRN norco for pain.
--- NOTE | 2019-01-18 12:23 | NUR ---
Deputy Coroner Investigator prayed with patient while nurse was in room.
--- NOTE | 2019-01-18 20:15 | NUR ---
Assessment complete; patient drowsy but awakens easily and follows commands appropriately. Speech is mumbled and difficult to understand but has been per usual self since arrival in ICU. Will continue to monitor.
[2019-01-19] VITALS (471 sets, daily range): BP systolic 116–131; BP diastolic 61–84; PULSE 86–95; TEMP 97.3–98.3; O2SAT 88–100
--- NOTE | 2019-01-19 00:15 | NUR ---
Resting in bed; no complaints at this time. Will continue to monitor.
--- NOTE | 2019-01-19 05:30 | NUR ---
PRN norco administered for hip and back pain.
[2019-01-19 05:51] LABS: BASO % 0.6 % (0.0-2.0); EOS # 0.2 (0.0-0.7); EOS % 4.5 % (0-4.0); GRAN # 3.1 (1.4-6.5); GRAN % 63.7 % (42.2-75.2); HEMATOCRIT 37.6 % (42.0-52.0); HEMOGLOBIN 12.6 g/dl (13.5-18.0); LYMPH % 19.8 % (20.0-51.0); MEAN CELL VOLUME 93 fl (80.0-100.0); MEAN CORPUSCULAR HEMOGLOBIN 31 pg (27.0-31.0); MEAN CORPUSCULAR HGB CONC 34 g/dl (33.0-37.0); MEAN PLATELET VOLUME 10.5 fl (7.4-10.4); MONO # 0.5 (0.1-0.6); MONO % 10.6 % (1.7-9.3); PLATELET COUNT 98 K/mm3 (130-400); RED BLOOD COUNT 4.04 M/mm3 (4.20-5.60); REDCELL DISTRIBUTION WIDTH-CV 12.9 % (11.5-14.5)
[2019-01-19 06:04] LABS: ALBUMIN 2.7 gm/dL (3.5-5.0); BILIRUBIN,TOTAL 0.6 mg/dL (0.0-1.0); CREATININE, serum 0.57 (0.66-1.25); POTASSIUM 3.5 mmol/L (3.4-5.0); TOTAL PROTEIN 5.4 gm/dL (6.4-8.2)
[2019-01-19 06:15] LABS: INR 1.2 (0.8-3.0); PROTHROMBIN TIME 13.6 SECONDS (9.7-12.8)
--- NOTE | 2019-01-19 08:30 | NUR ---
Report received from SANDRA Bradford. Pt in bed sleeping between disturbances, will continue to monitor.
--- NOTE | 2019-01-19 10:07 | NUR ---
Assessment charted. PT awakens easily but falls back asleep when not being stimulated. 0M at 2L, mouth breather. Kern draining yellow clear urine to DD in bag at side of bed. BLE pulses heard on dopplar, +1 pitting edema to feet, TEDs and SCDs in place. R hip eccymosis but Aquacel is CDI. LH INT, LIJ triple lumen, white port poor blood return but others ok. Sacrem stage 2 ulcer, mepilex and turning q2h. PT has "some pain to hip" but sleepy so no pain meds will be given at this time. Will continue to monitor.
--- NOTE | 2019-01-19 15:32 | NUR ---
Report called to SANDRA Naranjo on surgical who will be resuming care of pt. Pt tried to transfer to the bed himself but was a max 2 assist to stand and could not tolerate that for long. Pt transferred in bed to surgical bed with assistance of 3 personnel. Brought pt up to room with all belongings, oriented to room. Surgical nurse to resume care.
--- NOTE | 2019-01-19 19:25 | NUR ---
Pt sleeping with HOB elevated. No distress noted. Respirations even and unlabored. Lugns clear, bases diminished. Abdomen rounded, nontender. BS positive. PEG tube clamped. Pt receiving bolus feedings 5x/day. Kern catheter to dependent drainage- output is christine with sediment. Pt denies pain at this time. SCDS/TEDs bilaterally. O2 @ 98% on OxyMask. Spo2 is 98%. No needs noted at this time. Will continue to monitor.
--- NOTE | 2019-01-19 22:45 | NUR ---
Rhonda PATRICK called. Pt c/o nausea. Order received for PRN Phenergan. Pt also reporting pain 8/10 in R hip. PRN pain and nausea medication adminsitered.
[2019-01-20] VITALS: BP 131/73; PULSE 92; TEMP 98.2
--- NOTE | 2019-01-20 03:15 | NUR ---
Report recieved and cares assumed by this RN. Pt resting in bed, no s/s discomfort at this time. Previous assessment reviewed et agreed upon. Pt s needs, call light in reach, will monitor.
[2019-01-20 04:00] VITALS: BP 135/73; PULSE 88; TEMP 98.1
--- NOTE | 2019-01-20 04:00 | NUR ---
Pt heard moaning from nurses station. Pt c/o continued pain rated "8/10" at this time. Provided c PRN [place]arat via peg tube. Pt denies any other needs. Call light in reach, bed alarm on. Will monitor closely.
--- NOTE | 2019-01-20 05:15 | NUR ---
In to reassess pt pain. Pt reports "it's still just the same... 05/17". Provided c PRN Oxycodone per pt request for "anything else". Pt denies further needs. Call light in reach, bed alarm on.
[2019-01-20 06:00] VITALS: BP 134/73; PULSE 80; TEMP 98.1
--- NOTE | 2019-01-20 07:15 | NUR ---
Pt resting in bed condition unchanged. Pt has had increased pain tonight, consistantly reported "8/10". Pt rests well int, but then can be heard moaning loudly from nurses station. Pt resting calmly in bed at this time. Report given to Horace to assume pt cares.
[2019-01-20 08:13] LABS: HEMATOCRIT 38.4 % (42.0-52.0); HEMOGLOBIN 12.7 g/dl (13.5-18.0); MEAN CELL VOLUME 94 fl (80.0-100.0); MEAN CORPUSCULAR HEMOGLOBIN 31 pg (27.0-31.0); MEAN CORPUSCULAR HGB CONC 33 g/dl (33.0-37.0); MEAN PLATELET VOLUME 10.2 fl (7.4-10.4); PLATELET COUNT 119 K/mm3 (130-400); RED BLOOD COUNT 4.07 M/mm3 (4.20-5.60)
[2019-01-20 08:20] LABS: ALBUMIN 2.8 gm/dL (3.5-5.0); BILIRUBIN,TOTAL 0.6 mg/dL (0.0-1.0); CALCIUM 8.6 mg/dL (8.4-10.2); CREATININE, serum 0.58 (0.66-1.25); MAGNESIUM 1.9 mg/dL (1.6-2.3); POTASSIUM 3.5 mmol/L (3.4-5.0); TOTAL PROTEIN 5.5 gm/dL (6.4-8.2)
[2019-01-20 08:36] VITALS: BP 116/70; PULSE 93; TEMP 97.5
[2019-01-20 08:47] LABS: BAND 5 % (0-10); EOSINOPHIL 6 % (0-4); LYMPHOCYTE 37 % (20.0-51.0); METAMYELOCYTE 1 % (0-0); MYELOCYTE 1 % (0-0); NEUTROPHILS 38 % (42.0-75.2); PLATELET ESTIMATE DECREASED (NORMAL)
--- NOTE | 2019-01-20 09:38 | NUR ---
SW attended clinical rounds. Patient will likley discharge tomorrow to [facility]. SW will fax updates.
--- NOTE | 2019-01-20 09:51 | NUR ---
PT RESTSING IN BED, VSS, HYDROCODHE GIVE FOR REPORTED PAIN. DR. OLIVAREZ IN TO SEE PATEINT, PLAN ON DISCHARGE BACK TO [facility] TOMMMORROW.
--- NOTE | 2019-01-20 10:01 | NUR ---
Follow-up visit; Patient thanked Pizzamaker for offering prayer and God's blessings.
[2019-01-20 12:02] VITALS: BP 117/63; PULSE 83; TEMP 97.5
[2019-01-20 16:21] VITALS: BP 130/67; PULSE 86; TEMP 97.5
--- NOTE | 2019-01-20 17:40 | NUR ---
PT REFUSING TUBE FEED THIS PM. OFFERED TO HELP ORDER FOOD PER DIETARY BUT ALSO REFUSED.
--- NOTE | 2019-01-20 19:05 | NUR ---
REPORT TO MATTHEW FLORES.
--- NOTE | 2019-01-20 21:00 | NUR ---
Pt. laying in bed at this time. Pt. is A&OX3, assessment complete. INT to lt. wrist patent, TLC to lt. IJ patent. PEG tube noted, Pt. refused tube feeding this evening. Pt. reports pain to rt. hip at a 5 on pain scale, will give pain meds per orders. Pt. denies further needs.
[2019-01-21] VITALS: BP 131/74; PULSE 89; TEMP 97.9
[2019-01-21 04:00] VITALS: BP 118/72; PULSE 83; TEMP 97.8
--- NOTE | 2019-01-21 06:45 | NUR ---
appears to be sleeping, bedside shift report received from SANDRA Dove
[2019-01-21 07:29] LABS: HEMATOCRIT 37.9 % (42.0-52.0); HEMOGLOBIN 12.7 g/dl (13.5-18.0); MEAN CELL VOLUME 94 fl (80.0-100.0); MEAN CORPUSCULAR HEMOGLOBIN 32 pg (27.0-31.0); MEAN CORPUSCULAR HGB CONC 34 g/dl (33.0-37.0); MEAN PLATELET VOLUME 10.5 fl (7.4-10.4); PLATELET COUNT 134 K/mm3 (130-400); RED BLOOD COUNT 4.03 M/mm3 (4.20-5.60); REDCELL DISTRIBUTION WIDTH-CV 12.6 % (11.5-14.5)
[2019-01-21 07:43] LABS: CALCIUM 8.5 mg/dL (8.4-10.2); CREATININE, serum 0.62 (0.66-1.25); POTASSIUM 3.8 mmol/L (3.4-5.0)
[2019-01-21 07:47] VITALS: BP 134/78; PULSE 88; TEMP 98.4
[2019-01-21 08:12] LABS: BAND 1 % (0-10); EOSINOPHIL 3 % (0-4); LYMPHOCYTE 30 % (20.0-51.0); MYELOCYTE 1 % (0-0); NEUTROPHILS 49 % (42.0-75.2); PLATELET ESTIMATE DECREASED (NORMAL)
--- NOTE | 2019-01-21 08:40 | NUR ---
awake and sitting up in chair, assisted with ordering breakfast
--- NOTE | 2019-01-21 09:25 | NUR ---
sitting up in recliner eating breakfast, takes am meds without difficulty
--- NOTE | 2019-01-21 09:48 | NUR ---
SW attended clinical rounds. Patient will discharge back to [facility] today and receive prison, PT and OT. SW attempted to contact patient's sister, Nyla, to inform her of discharge and to review IM. SW left a message.
[2019-01-21] MEDS ORDERED: OMNICEF 121500 MG/60 PO (09:57)
[2019-01-21] MEDS ORDERED: IPRATROPIUM BROM3 M1 IH (09:57)
[2019-01-21] MEDS ORDERED: COREG 3.123.125 MG/T PO (09:57)
[2019-01-21] MEDS ORDERED: ASPIRIN 32325 MG/TAB PO (09:58)
[2019-01-21] MEDS ORDERED: KLONOPIN2 MG PEG (09:59)
[2019-01-21] MEDS ORDERED: NOVOLOG 100U100 U/M1 SQ (10:10)
[2019-01-21] MEDS ORDERED: LEVEMIR100 U/ML SQ (10:10)
--- NOTE | 2019-01-21 10:20 | NUR ---
up in chair after breakfast, full assessment completed, see interventions for further info
--- NOTE | 2019-01-21 10:30 | NUR ---
cai catheter discontinued, will plan discharge later today, states has not had bowel movement in a few days
--- NOTE | 2019-01-21 10:52 | NUR ---
Initial visit; Patient thanked Signal Processing Engineer for stopping and offering God's blessings.
--- NOTE | 2019-01-21 11:00 | NUR ---
assisted with am care and dressed for discharge later today, checked for impaction and no impaction of bowel felt, aquacel dressing to right hip removed and new aquacel placed, incision with darell and are CD&I, c/o pain to right hip after being moved, medicated with hydrocodone 7.5mg 2 tabs, positioned to left side off coccyx as coccyx is very red, will try to rest
--- NOTE | 2019-01-21 11:04 | NUR ---
KISHAN spoke with patient's sister/DPOA, Nyla, about discharge. KISHAN reviewed IM with Nyla and she verbalized understanding and consent. KISHAN also faxed discharge orders to [facility]. Patient discharging today (01/21) to [facility] for [facility], PT and OT.
[2019-01-21 11:39] VITALS: BP 134/78; PULSE 88; TEMP 98.4
[2019-01-21 12:27] VITALS: BP 139/75; PULSE 84; TEMP 98
--- NOTE | 2019-01-21 12:30 | NUR ---
lying on left side and states is uncomfortable, also thought he had a bowel movement, no bowel movement found, repositined to back, voided in urinal
--- NOTE | 2019-01-21 13:01 | NUR ---
appears now to be sleeping, in bed with lights off, eyes closed, resp quiet and easy
--- NOTE | 2019-01-21 14:00 | NUR ---
assisted to sitting up in bed to eat lunch
[2019-01-21] MEDS ORDERED: NORCO 325 MG-7.1 TAB PO (14:39)
--- NOTE | 2019-01-21 14:50 | NUR ---
resting in bed visiting with a friend, friend is now leaving, central line to left internal jugular discontinued, pressure held for 5 minutes, tolerated well
--- NOTE | 2019-01-21 16:38 | NUR ---
Maldonado here for transfer, report called, patient transferred per WC
== END 2019-01-21 16:39 | DRG 469 ==
LOC: COL.ER 15:10 → SURG 19:11 → ICU 01-16 11:12 → SURG 01-19 15:54
PROVIDERS: Emergency Medicine; Family Medicine; Internal Medicine Pulmonary Disease; Nurse Practitioner Family; Orthopaedic Surgery; Physician Assistant; ADMIT Internal Medicine
PROC: 0SRR0JA Replacement of Right Hip Joint, Femoral Surface with Synthetic Substitute, Uncemented, Open Approach (ICD-10-PCS; principal; 2019-01-15 12:00)
PROC: 02HV33Z Insertion of Infusion Device into Superior Vena Cava, Percutaneous Approach (ICD-10-PCS; 2019-01-16)
DX: S72.001A Fracture of unspecified part of neck of right femur, initial encounter for closed fracture (principal); I50.23 Acute on chronic systolic (congestive) heart failure; N39.0 Urinary tract infection, site not specified; T83.518A Infection and inflammatory reaction due to other urinary catheter, initial encounter; A41.89 Other specified sepsis; J96.01 Acute respiratory failure with hypoxia; E44.0 Moderate protein-calorie malnutrition; W18.39XA Other fall on same level, initial encounter; Y92.121 Bathroom in nursing home as the place of occurrence of the external cause; Z88.1 Allergy status to other antibiotic agents; Z88.5 Allergy status to narcotic agent; Z88.8 Allergy status to other drugs, medicaments and biological substances; I25.10 Atherosclerotic heart disease of native coronary artery without angina pectoris; I11.0 Hypertensive heart disease with heart failure; Z95.5 Presence of coronary angioplasty implant and graft; J44.9 Chronic obstructive pulmonary disease, unspecified; E11.9 Type 2 diabetes mellitus without complications; Z79.4 Long term (current) use of insulin; G20 Parkinson's disease; Z93.1 Gastrostomy status; K21.9 Gastro-esophageal reflux disease without esophagitis; F31.9 Bipolar disorder, unspecified; F41.8 Other specified anxiety disorders; F20.9 Schizophrenia, unspecified; G47.00 Insomnia, unspecified; E03.9 Hypothyroidism, unspecified; I25.5 Ischemic cardiomyopathy; I35.0 Nonrheumatic aortic (valve) stenosis; R00.0 Tachycardia, unspecified; T44.995A Adverse effect of other drug primarily affecting the autonomic nervous system, initial encounter; R07.89 Other chest pain; D69.6 Thrombocytopenia, unspecified; Z68.27 Body mass index [BMI] 27.0-27.9, adult
CPT/HCPCS: 99223-AI; 99232-AI; 99233-AI; 99239; A4216; A9284; A9500; C1776; C9113; J0690; J0696; J1100; J1160; J1265; J1644; J1650; J1815; J1885; J1940; J2250; J2270; J2370; J2405; J2704; J2785; J3010; J3475; J3480; J7030; J7040; J7060; J7120

== ENCOUNTER 2019-01-27 07:03 | Emergency (ER) | payer MEDICARE, MEDICAID ==
[2009-06-25 08:46] VITALS: BP 124/79
[~2019-01-27] VITALS: Ht 180.3 cm; Wt 90.9 kg
[~2019-01-27 07:03] MED LIST changes: +ASPIRIN 32325 MG/TAB PO; +COREG 3.123.125 MG/T PO; +OMNICEF 121500 MG/60 PO; +TRIAMCINOLONE A15 GM TP
[2019-01-27 07:08] VITALS: BP 130/79; PULSE 96; TEMP 97
[2019-01-27 07:46] LABS: BASO % 0.4 % (0.0-2.0); EOS # 0.1 (0.0-0.7); EOS % 1.2 % (0-4.0); GRAN # 6.5 (1.4-6.5); GRAN % 77.8 % (42.2-75.2); HEMATOCRIT 39.1 % (42.0-52.0); HEMOGLOBIN 13.1 g/dl (13.5-18.0); LYMPH # 1.1 (1.2-3.4); LYMPH % 12.7 % (20.0-51.0); MEAN CELL VOLUME 94 fl (80.0-100.0); MEAN CORPUSCULAR HEMOGLOBIN 31 pg (27.0-31.0); MEAN CORPUSCULAR HGB CONC 34 g/dl (33.0-37.0); MEAN PLATELET VOLUME 9.5 fl (7.4-10.4); MONO # 0.5 (0.1-0.6); MONO % 5.9 % (1.7-9.3); PLATELET COUNT 176 K/mm3 (130-400); RED BLOOD COUNT 4.18 M/mm3 (4.20-5.60); REDCELL DISTRIBUTION WIDTH-CV 14.1 % (11.5-14.5)
[2019-01-27 07:55] LABS: ALBUMIN 3.4 gm/dL (3.5-5.0); BILIRUBIN,TOTAL 0.9 mg/dL (0.0-1.0); CALCIUM 8.8 mg/dL (8.4-10.2); CREATININE, serum 0.85 (0.66-1.25); INR 1.3 (0.8-3.0); POTASSIUM 3.9 mmol/L (3.4-5.0); PROTHROMBIN TIME 14.5 SECONDS (9.7-12.8); TOTAL PROTEIN 6.1 gm/dL (6.4-8.2)
[2019-01-27 07:58] LABS: PARTIAL THROMBOPLASTIN TIME 31.2 SECONDS (26.0-37.0)
[2019-01-27 08:02] LABS: DIGOXIN 0.4 ng/mL (0.8-2.0)
[2019-01-27 10:12] LABS: COLLECTION METHOD CATHETER
[2019-01-27 10:34] LABS: MUCOUS Present /lpf; PH 5 (5-8); SQUAMOUS EPITHELIAL 0-2 /hpf; URINE APPEARANCE Clear; URINE BACTERIA None Seen /hpf; URINE BILIRUBIN Negative (NEGATIVE); URINE BLOOD Negative (NEGATIVE); URINE COLOR Amber; URINE GLUCOSE Negative (NEGATIVE); URINE KETONE Trace (NEGATIVE); URINE LEUKOCYTE ESTERASE Negative (NEGATIVE); URINE NITRATE Negative (NEGATIVE); URINE PROTEIN(semi-quant) 1+ (NEGATIVE); URINE RBC 20-50 /hpf; URINE UROBILINOGEN >=4.0 mg/dL (NEGATIVE)
[2019-01-27] MEDS ORDERED: PLAVIX 75MG TAB75 MG PO (10:41)
[2019-01-27] MEDS ORDERED: OMNICEF 121500 MG/60 PO (10:42)
[2019-01-27] MEDS ORDERED: ASPIRIN 32325 MG/TAB PO (10:42)
== END 2019-01-27 12:33 | disposition home or self-care (01) ==
LOC: COL.ER 07:03
PROVIDERS: Emergency Medicine
DX: S70.01XA Contusion of right hip, initial encounter (principal); I10 Essential (primary) hypertension; G20 Parkinson's disease; I25.10 Atherosclerotic heart disease of native coronary artery without angina pectoris; J44.9 Chronic obstructive pulmonary disease, unspecified; E11.9 Type 2 diabetes mellitus without complications; Z79.02 Long term (current) use of antithrombotics/antiplatelets; Z79.82 Long term (current) use of aspirin; Z79.4 Long term (current) use of insulin; W18.39XA Other fall on same level, initial encounter; Y92.129 Unspecified place in nursing home as the place of occurrence of the external cause
CPT/HCPCS: A4216; J0696

== ENCOUNTER → 2019-02-01 | Outpatient (CLI) | payer MEDICARE, MEDICAID ==
[2019-02-01 12:47] LABS: COLLECTION METHOD CLEAN CATCH
[2019-02-01 13:19] LABS: PH 5 (5-8); SQUAMOUS EPITHELIAL None Seen /hpf; URINE APPEARANCE Hazy; URINE BACTERIA None Seen /hpf; URINE BILIRUBIN Negative (NEGATIVE); URINE BLOOD 3+ (NEGATIVE); URINE CALCIUM OXALATE CRYSTAL Present /hpf; URINE COLOR Amber; URINE GLUCOSE Negative (NEGATIVE); URINE KETONE Negative (NEGATIVE); URINE LEUKOCYTE ESTERASE Negative (NEGATIVE); URINE NITRATE Negative (NEGATIVE); URINE PROTEIN(semi-quant) 1+ (NEGATIVE); URINE RBC >50 /hpf
== END ==
LOC: ZCOL.LAB 12:41
PROVIDERS: Internal Medicine
DX: N39.0 Urinary tract infection, site not specified (principal)

== ENCOUNTER → 2019-02-01 | Outpatient (REF) | LOC: ZLAB.WCH 12:03 | DX: Z01.89 Encounter for other specified special examinations (principal) ==

== ENCOUNTER 2019-02-04 17:29 | Inpatient (IN) | payer MEDICARE, MEDICAID ==
[2019-02-04] VITALS (38 sets, daily range): O2SAT 93–98
[~2019-02-04] VITALS: Ht 180.3 cm; Wt 89.4 kg
[2019-02-04 18:18] LABS: BASO % 0.4 % (0.0-2.0); EOS # 0.1 (0.0-0.7); EOS % 1.8 % (0-4.0); GRAN % 54.3 % (42.2-75.2); HEMATOCRIT 39.9 % (42.0-52.0); HEMOGLOBIN 13.2 g/dl (13.5-18.0); LYMPH # 2.2 (1.2-3.4); LYMPH % 30.3 % (20.0-51.0); MEAN CELL VOLUME 93 fl (80.0-100.0); MEAN CORPUSCULAR HEMOGLOBIN 31 pg (27.0-31.0); MEAN CORPUSCULAR HGB CONC 33 g/dl (33.0-37.0); MEAN PLATELET VOLUME 10.7 fl (7.4-10.4); MONO # 0.9 (0.1-0.6); MONO % 12.2 % (1.7-9.3); PLATELET COUNT 142 K/mm3 (130-400); RED BLOOD COUNT 4.27 M/mm3 (4.20-5.60); REDCELL DISTRIBUTION WIDTH-CV 14.9 % (11.5-14.5)
[2019-02-04 18:25] LABS: ALBUMIN 3.7 gm/dL (3.5-5.0); BILIRUBIN,TOTAL 1.1 mg/dL (0.0-1.0); C-REACTIVE PROTEIN 2.7 mg/dL (0.0-0.9); CALCIUM 9.1 mg/dL (8.4-10.2); CREATININE, serum 1.59 (0.66-1.25); POTASSIUM 3.9 mmol/L (3.4-5.0); TOTAL PROTEIN 6.5 gm/dL (6.4-8.2)
--- NOTE | 2019-02-04 21:40 | NUR ---
Pt. arrived to the floor via stretcher from the ER. Pt. transferred to the bed with 3 assist. Pt. is A&OX3, assessment complete. INT to bilateral ac. Pt. reports pain to the neck at a 7 at this time. Will notifiy the CHEMICAL LABORATORY CHIEF. Pt. denies further needs, call light within reach.
[2019-02-04] MEDS ORDERED: COREG 3.123.125 MG/T PO (22:56)
[2019-02-04] MEDS ORDERED: ASPIRIN 81M81 MG/TA2 PO (22:56)
[2019-02-04] MEDS ORDERED: IPRATROPIUM BROM3 M1 IH (22:57)
[2019-02-04] MEDS ORDERED: NOVOLOG 100U100 U/M1 SQ (22:58)
[2019-02-04] MEDS ORDERED: KLONOPIN2 MG PO (23:07)
[2019-02-04] MEDS ORDERED: IMDUR 60MG60 MG/TAB PO (23:11)
[2019-02-04] MEDS ORDERED: NORCO 325 MG-7.1 TAB PO (23:11)
[2019-02-05] VITALS (73 sets, daily range): BP systolic 109–141; BP diastolic 66–97; PULSE 81–97; TEMP 97.7–98.7; O2SAT 87–99
[2019-02-05 03:06] LABS: COLLECTION METHOD CLEAN CATCH
[2019-02-05 03:31] LABS: MUCOUS Present /lpf; PH 6 (5-8); SQUAMOUS EPITHELIAL None Seen /hpf; URINE APPEARANCE Hazy; URINE BACTERIA None Seen /hpf; URINE BILIRUBIN Negative (NEGATIVE); URINE BLOOD 3+ (NEGATIVE); URINE COLOR Yellow; URINE GLUCOSE Negative (NEGATIVE); URINE KETONE Trace (NEGATIVE); URINE LEUKOCYTE ESTERASE 2+ (NEGATIVE); URINE NITRATE Negative (NEGATIVE); URINE PROTEIN(semi-quant) 1+ (NEGATIVE); URINE RBC >50 /hpf
--- NOTE | 2019-02-05 06:42 | NUR ---
Pt. slept well through the night. Pt. remains A&OX3. IV to bitlateral AC's patent. IV fluids infusing to rt. AC. Pt. report his buttocks hurts, checked for incontinence, and repositioned. Pt. reports just not feeling well this am. Pt. denies other needs, call light within reach.
[2019-02-05 09:05] LABS: BASO % 0.2 % (0.0-2.0); EOS # 0.1 (0.0-0.7); EOS % 1.5 % (0-4.0); GRAN # 3.3 (1.4-6.5); GRAN % 62.6 % (42.2-75.2); HEMATOCRIT 35.1 % (42.0-52.0); HEMOGLOBIN 11.7 g/dl (13.5-18.0); LYMPH # 1.3 (1.2-3.4); LYMPH % 24.6 % (20.0-51.0); MEAN CELL VOLUME 94 fl (80.0-100.0); MEAN CORPUSCULAR HEMOGLOBIN 31 pg (27.0-31.0); MEAN CORPUSCULAR HGB CONC 33 g/dl (33.0-37.0); MEAN PLATELET VOLUME 10.4 fl (7.4-10.4); MONO # 0.5 (0.1-0.6); PLATELET COUNT 107 K/mm3 (130-400); RED BLOOD COUNT 3.74 M/mm3 (4.20-5.60); REDCELL DISTRIBUTION WIDTH-CV 14.8 % (11.5-14.5)
[2019-02-05 09:09] LABS: INR 1.2 (0.8-3.0); PROTHROMBIN TIME 13.3 SECONDS (9.7-12.8)
[2019-02-05 09:14] LABS: ALANINE AMINOTRANSFERASE 21 U/L (21-72); ALKALINE PHOSPHATASE 119 U/L (50-136); ANION GAP 3 mmol/L (7-16); AST,SGOT 31 U/L (15-37); BILIRUBIN,TOTAL 0.8 mg/dL (0.0-1.0); BLOOD UREA NITROGEN 12 mg/dL (9-20); CALCIUM 8.4 mg/dL (8.4-10.2); CARBON DIOXIDE 25 mmol/L (22-30); CHLORIDE 110 mmol/L (98-107); CREATININE, serum 0.75 (0.66-1.25); GLUCOSE 113 mg/dL (74-106); POTASSIUM 3.9 mmol/L (3.4-5.0); SODIUM 139 mmol/L (137-145); TOTAL PROTEIN 5.5 gm/dL (6.4-8.2)
[2019-02-05 09:26] LABS: TROPONIN-I < 0.012 ng/mL (0.000-0.035)
--- NOTE | 2019-02-05 09:37 | NUR ---
Initial visit; Patient thanked Piano Mechanic Apprentice for looking in on him and offering comfort and prayer.
[2019-02-05 12:06] LABS: MAGNESIUM 1.8 mg/dL (1.6-2.3); PHOSPHOROUS 3.9 mg/dL (2.5-4.5)
--- NOTE | 2019-02-05 16:21 | NUR ---
Report called to Peter RN on medical floor. Pt taken by bed to room 310 with chart and personal belongings including wheelchair at 1600. Bedside update given to Peter.
--- NOTE | 2019-02-05 18:00 | NUR ---
Patient arrived to the Medical floor around 1600 by wheelchair, he is alert/oriented, vital signs stable, gave a [place] for increasing pain, helped him eat his dinner and he finished roughly 60-70% of of his meal/ did not give the Jevity Bolus
--- NOTE | 2019-02-05 23:44 | NUR ---
Completed assessment and medication administration; PT tolerated all cares and medication well with use of applesauce; PT continues repositioning for redness of right buttock/coccyx area; PT A&Ox4, BS active x4, CTAB with diminished bilateral bases, cai draining tea colored urine dependent to collection bag, HRRR; PT reports pain to bottock area with administration of medication; No further assessed or verbalized concerns at time of exit; PT assisted to comfortable position in bed with personal items and call light within reach; Will continue to monitor. CDA
[2019-02-06] VITALS (7 sets, daily range): BP systolic 115–156; BP diastolic 65–83; PULSE 86–95; TEMP 97.1–98.1
--- NOTE | 2019-02-06 02:06 | NUR ---
PT resting intermittently in bed throughout the night; No further assessed concerns at time of rounds; PT assisted throughout night to multiple positions; PT attempting to rest in bed with personal items and call light within reach; PT continues to c/o nausea; Will continues to monitor. CDA
[2019-02-06 05:59] LABS: BASO % 0.7 % (0.0-2.0); EOS # 0.1 (0.0-0.7); EOS % 2.7 % (0-4.0); GRAN % 48.4 % (42.2-75.2); HEMATOCRIT 35.7 % (42.0-52.0); HEMOGLOBIN 11.6 g/dl (13.5-18.0); LYMPH # 1.5 (1.2-3.4); LYMPH % 36.3 % (20.0-51.0); MEAN CELL VOLUME 94 fl (80.0-100.0); MEAN CORPUSCULAR HEMOGLOBIN 31 pg (27.0-31.0); MEAN CORPUSCULAR HGB CONC 33 g/dl (33.0-37.0); MEAN PLATELET VOLUME 10.1 fl (7.4-10.4); MONO # 0.4 (0.1-0.6); MONO % 10.9 % (1.7-9.3); PLATELET COUNT 98 K/mm3 (130-400); RED BLOOD COUNT 3.79 M/mm3 (4.20-5.60); REDCELL DISTRIBUTION WIDTH-CV 14.6 % (11.5-14.5)
[2019-02-06 06:05] LABS: INR 1.2 (0.8-3.0); PROTHROMBIN TIME 13.4 SECONDS (9.7-12.8)
[2019-02-06 06:12] LABS: ALBUMIN 2.9 gm/dL (3.5-5.0); BILIRUBIN,TOTAL 0.7 mg/dL (0.0-1.0); CALCIUM 8.5 mg/dL (8.4-10.2); CREATININE, serum 0.7 (0.66-1.25); POTASSIUM 3.6 mmol/L (3.4-5.0); TOTAL PROTEIN 5.4 gm/dL (6.4-8.2)
--- NOTE | 2019-02-06 06:42 | NUR ---
Report given to SANDRA Green; No significant changes or concerns at time of shift. CDA
--- NOTE | 2019-02-06 10:12 | NUR ---
Follow-up visit; Patient thanked Obgyn Specialist for looking in on him and offering encouragement and blessings.
--- NOTE | 2019-02-06 10:36 | NUR ---
Assessment completed, alert/oriented, vital signs have been stable, afebrile and WBC wnl, hypotension is resolved, cai cath is patent and urine looks much better/ yellow and clear, heart RRR/ distal pulses are palpable, lungs CTA/ no resp. difficulty, PT has gotten patient up to the chair, he ate a good breakfast / roughly 80%, meds taken orally whole in applesauce and tolerated well, ST will also see again today, he denies other needs at this time
--- NOTE | 2019-02-06 13:30 | NUR ---
Patient refused any lunch, stated not feeling very well, also refused tube feeding / stated stomach feels unsettled today, he had a good breakfast however, he reports he just wants to take a nap and requested that we put a do not disturb sign at his door
--- NOTE | 2019-02-06 13:39 | NUR ---
KISHAN and KISHAN student met with the patient to discuss discharge plan. The patient resides at [facility] for long-term care. The patient reports he plans to return back to [facility] upon discharge. KISHAN presented and explained the Patient Choice Form to the patient. The patient states he is unable to write well and gave SW his verbal consent. KISHAN provided a copy to the patient. KISHAN segal attempted to contact the patient's sister, Nyla, to confirm plan. KISHAN segal left a voicemail. KISHAN then contacted the patient's brother, Milton. Milton confirmed that the plan is for the patient to return back to [facility]. The patient's DPOA-HC is in EMR. KISHAN contacted and faxed a referral to Alexandro at [facility]. KISHAN to continue to follow.
--- NOTE | 2019-02-06 21:15 | NUR ---
Completed assessment and medication administration; PT tolerated call medications with applesauce and call cares well; PT alert with intermittent confusion, BS active x4, assisted x2 Q2H positioning, Lungs CTAB with bilateral diminished bases, cai in placed without kinks draining dependent to collection bag; Minimal reported pain to RLE and LB, administered PRN pain medication, Reported nausea without resolve, administered PRN medication; No further assessed or verbalized concerns or complainst at time of exit; PT assisted to comfortable position in bed with personal items and call light within reach; Will continue to monitor. CDA
--- NOTE | 2019-02-07 03:15 | NUR ---
PT resting well intermittently in bed; Minor complaints of headache and nausea treated with PRN medications as ordered with effective results reported; No further acute complaints or concerns at times of rounds; Will continue to monitor. CDA
[2019-02-07 03:42] VITALS: BP 147/92; PULSE 85; TEMP 98.2
--- NOTE | 2019-02-07 06:58 | NUR ---
Report given to SANDRA Green; No significant changes or concerns at time of shift change. CDA
[2019-02-07 07:21] LABS: BASO % 0.4 % (0.0-2.0); EOS # 0.1 (0.0-0.7); EOS % 1.9 % (0-4.0); GRAN # 2.6 (1.4-6.5); GRAN % 54.1 % (42.2-75.2); HEMATOCRIT 39.8 % (42.0-52.0); HEMOGLOBIN 13.3 g/dl (13.5-18.0); LYMPH # 1.5 (1.2-3.4); LYMPH % 30.9 % (20.0-51.0); MEAN CELL VOLUME 94 fl (80.0-100.0); MEAN CORPUSCULAR HEMOGLOBIN 31 pg (27.0-31.0); MEAN CORPUSCULAR HGB CONC 33 g/dl (33.0-37.0); MEAN PLATELET VOLUME 10.7 fl (7.4-10.4); MONO # 0.6 (0.1-0.6); MONO % 11.3 % (1.7-9.3); RED BLOOD COUNT 4.24 M/mm3 (4.20-5.60); REDCELL DISTRIBUTION WIDTH-CV 14.4 % (11.5-14.5)
[2019-02-07] MEDS ORDERED: NORCO 325 MG-7.1 TAB PO (07:26)
[2019-02-07 07:39] LABS: ALBUMIN 3.4 gm/dL (3.5-5.0); CALCIUM 8.8 mg/dL (8.4-10.2); CREATININE, serum 0.65 (0.66-1.25); POTASSIUM 3.8 mmol/L (3.4-5.0)
[2019-02-07 07:41] LABS: PLATELET COUNT 132 K/mm3 (130-400)
--- NOTE | 2019-02-07 07:58 | NUR ---
Assessment completed, alert/oriented, vital signs stable, reports right knee pain has been bothering him /[place] given per patient request, he did not want breakfast quite yet/ but stated he will eat some breakfast, patient has been eating fairly well / >50% of his meals and has not been requiring supplemental G-tube feeds, patient needs encouragement to push oral fluids/ but is able to drink and tolerating well, urine is a little darker this morning, PVR afte rremoving cai was <100, heart RRR, lungs CTA, ST here to do evaluate, denies other needs at this time
[2019-02-07 08:20] VITALS: BP 132/70; PULSE 86; TEMP 98
[2019-02-07 08:37] LABS: INR 1.2 (0.8-3.0); PROTHROMBIN TIME 13.5 SECONDS (9.7-12.8)
[2019-02-07] MEDS ORDERED: LEVAQUIN 5500 MG/TA1 PO (09:05)
[2019-02-07] MEDS ORDERED: ROXANOL 20MG20 MG/ML SL (09:15)
[2019-02-07] MEDS ORDERED: KLONOPIN2 MG PO (09:15)
--- NOTE | 2019-02-07 10:19 | NUR ---
patient ended up completely refusing breakfast, he was agreeable to a bolus tube feeding, his residual was 5cc, and I gave a full carton (237ml) of Jevity 1.5, flushed before and after / 65cc H20 total
--- NOTE | 2019-02-07 10:38 | NUR ---
Follow-up visit; Aleksandar states he is "feeling strange," urged him to let his nurse know. He requested that [employer] contact his alevism, particularly Crystal Olmedo did so and delivered a message back to Aleksandar of the prayers and good thoughts that are being sent him.
[2019-02-07 11:37] VITALS: BP 131/68; PULSE 88; TEMP 97.6
--- NOTE | 2019-02-07 11:40 | NUR ---
The patient is to discharge today, 02/07, back to [facility] for a skilled stay. Transportation was set for around 1330, via [facility]. KISHAN informed the patient, patient's nurse, and the patient's brother (Milton) via phone. They were all in agreeance. SW also attempted to inform the patient's sister (Nyla). KISHAN left a voicemail. KISHAN presented and explained the IM form to the patient. The patient verbalized understanding and gave KISHAN his verbal consent. The patient was provided with a copy. No additional needs at this time.
--- NOTE | 2019-02-07 13:51 | NUR ---
Discharge orders reivewed with recieving nursing staff at [facility], report given and patient is transferring back to [facility] at this time
== END 2019-02-07 13:52 | DRG 871 ==
LOC: COL.ER 17:29 → ICU 19:06 → MEDICAL 02-05 16:13
PROVIDERS: Emergency Medicine; Nurse Practitioner Family; ADMIT Hospitalist
DX: A41.9 Sepsis, unspecified organism (principal); R65.21 Severe sepsis with septic shock; N17.9 Acute kidney failure, unspecified; I50.22 Chronic systolic (congestive) heart failure; E44.0 Moderate protein-calorie malnutrition; N39.0 Urinary tract infection, site not specified; I11.0 Hypertensive heart disease with heart failure; Z68.26 Body mass index [BMI] 26.0-26.9, adult; G20 Parkinson's disease; I25.10 Atherosclerotic heart disease of native coronary artery without angina pectoris; Z95.5 Presence of coronary angioplasty implant and graft; J44.9 Chronic obstructive pulmonary disease, unspecified; E11.9 Type 2 diabetes mellitus without complications; E03.9 Hypothyroidism, unspecified; F20.9 Schizophrenia, unspecified; F31.9 Bipolar disorder, unspecified; F41.8 Other specified anxiety disorders; Z79.4 Long term (current) use of insulin; I95.9 Hypotension, unspecified; D64.9 Anemia, unspecified; Z93.1 Gastrostomy status
CPT/HCPCS: 99222-AI; 99239; A4216; C9113; J0692; J1644; J2270; J2550; J7030; J7040

== ENCOUNTER → 2019-02-11 | Outpatient (REF) ==
[~2019-02-11] MED LIST changes: +LEVAQUIN 5500 MG/TA1 PO
== END ==
LOC: ZLAB.WCH 10:41
DX: Z01.89 Encounter for other specified special examinations (principal)

== ENCOUNTER → 2019-03-05 | Outpatient (REF) ==
[2019-03-05 15:47] LABS: BASO % 0.2 % (0.0-2.0); EOS # 0.1 (0.0-0.7); EOS % 1.2 % (0-4.0); GRAN # 6.5 (1.4-6.5); GRAN % 69.2 % (42.2-75.2); HEMATOCRIT 41.8 % (42.0-52.0); HEMOGLOBIN 13.9 g/dl (13.5-18.0); MEAN CELL VOLUME 94 fl (80.0-100.0); MEAN CORPUSCULAR HEMOGLOBIN 31 pg (27.0-31.0); MEAN CORPUSCULAR HGB CONC 33 g/dl (33.0-37.0); MEAN PLATELET VOLUME 10.1 fl (7.4-10.4); MONO # 0.7 (0.1-0.6); MONO % 7.4 % (1.7-9.3); PLATELET COUNT 151 K/mm3 (130-400); RED BLOOD COUNT 4.44 M/mm3 (4.20-5.60); REDCELL DISTRIBUTION WIDTH-CV 13.8 % (11.5-14.5)
[2019-03-05 16:01] LABS: ALBUMIN 3.5 gm/dL (3.5-5.0); BILIRUBIN,TOTAL 0.6 mg/dL (0.0-1.0); CALCIUM 9.1 mg/dL (8.4-10.2); CREATININE, serum 0.79 (0.66-1.25); POTASSIUM 4.7 mmol/L (3.4-5.0); TOTAL PROTEIN 5.7 gm/dL (6.4-8.2)
== END ==
LOC: ZCOL.LAB 15:39
PROVIDERS: Internal Medicine
DX: E11.65 Type 2 diabetes mellitus with hyperglycemia (principal)

== ENCOUNTER → 2019-03-20 | Outpatient (CLI) | payer MEDICARE, MEDICAID ==
[2019-03-20 14:33] LABS: CALCIUM 8.9 mg/dL (8.4-10.2); CREATININE, serum 0.78 (0.66-1.25)
== END ==
LOC: ZCOL.LAB 13:04
PROVIDERS: Internal Medicine
DX: F20.9 Schizophrenia, unspecified (principal)

== ENCOUNTER 2019-03-25 02:04 | Emergency (ER) | payer MEDICARE, MEDICAID ==
[2009-06-25 08:46] VITALS: BP 124/79
[~2019-03-25] VITALS: Ht 180.3 cm; Wt 80.5 kg
[2019-03-25 02:12] VITALS: TEMP 97.5
[2019-03-25] MEDS ORDERED: LASIX 20MG TABL20 MG PO (02:22)
[2019-03-25 02:29] LABS: BASO % 0.3 % (0.0-2.0); EOS # 0.1 (0.0-0.7); GRAN # 3.8 (1.4-6.5); GRAN % 54.4 % (42.2-75.2); HEMATOCRIT 45.9 % (42.0-52.0); HEMOGLOBIN 15.3 g/dl (13.5-18.0); LYMPH # 2.3 (1.2-3.4); MEAN CELL VOLUME 94 fl (80.0-100.0); MEAN CORPUSCULAR HEMOGLOBIN 31 pg (27.0-31.0); MEAN CORPUSCULAR HGB CONC 33 g/dl (33.0-37.0); MEAN PLATELET VOLUME 10.2 fl (7.4-10.4); MONO # 0.6 (0.1-0.6); MONO % 9.2 % (1.7-9.3); PLATELET COUNT 149 K/mm3 (130-400); RED BLOOD COUNT 4.88 M/mm3 (4.20-5.60)
[2019-03-25 02:35] LABS: PARTIAL THROMBOPLASTIN TIME 32.4 SECONDS (26.0-37.0)
[2019-03-25 02:39] LABS: ALANINE AMINOTRANSFERASE 13 U/L (21-72); ALBUMIN 3.9 gm/dL (3.5-5.0); ALKALINE PHOSPHATASE 80 U/L (50-136); ANION GAP 10 mmol/L (7-16); AST,SGOT 16 U/L (15-37); BILIRUBIN,TOTAL 0.5 mg/dL (0.0-1.0); BLOOD UREA NITROGEN 16 mg/dL (9-20); CALCIUM 9.1 mg/dL (8.4-10.2); CARBON DIOXIDE 31 mmol/L (22-30); CHLORIDE 103 mmol/L (98-107); CREATININE, serum 0.79 (0.66-1.25); GLUCOSE 151 mg/dL (74-106); LIPASE 84 U/L (23-300); MAGNESIUM 1.9 mg/dL (1.6-2.3); SODIUM 144 mmol/L (137-145); TOTAL PROTEIN 6.6 gm/dL (6.4-8.2)
[2019-03-25 02:52] LABS: TROPONIN-I < 0.012 ng/mL (0.000-0.035)
[2019-03-25 04:41] LABS: COLLECTION METHOD CATHETER
[2019-03-25 05:10] LABS: PH 7 (5-8); SQUAMOUS EPITHELIAL None Seen /hpf; URINE APPEARANCE Clear; URINE BACTERIA None Seen /hpf; URINE BILIRUBIN Negative (NEGATIVE); URINE BLOOD Negative (NEGATIVE); URINE COLOR Yellow; URINE GLUCOSE Negative (NEGATIVE); URINE KETONE Negative (NEGATIVE); URINE LEUKOCYTE ESTERASE Trace (NEGATIVE); URINE NITRATE Negative (NEGATIVE); URINE PROTEIN(semi-quant) Negative (NEGATIVE)
[2019-03-25] MEDS ORDERED: BACTRIM DS 8001 TAB PO ×3 (06:59→07:19)
[2019-03-25 08:00] VITALS: BP 110/63; PULSE 82
== END 2019-03-25 09:00 | disposition home or self-care (01) ==
LOC: COL.ER 02:04
PROVIDERS: Emergency Medicine
DX: N39.0 Urinary tract infection, site not specified (principal); R07.89 Other chest pain; F41.9 Anxiety disorder, unspecified; I10 Essential (primary) hypertension; I25.10 Atherosclerotic heart disease of native coronary artery without angina pectoris; G20 Parkinson's disease; F20.9 Schizophrenia, unspecified; F31.9 Bipolar disorder, unspecified; Z95.5 Presence of coronary angioplasty implant and graft; Z79.4 Long term (current) use of insulin
CPT/HCPCS: J1170; J3010

== ENCOUNTER → 2019-04-02 | Outpatient (CLI) | payer MEDICARE, MEDICAID ==
[~2019-04-02] MED LIST changes: +BACTRIM DS 8001 TAB PO
== END ==
LOC: ZCOL.LAB 15:58
DX: I11.0 Hypertensive heart disease with heart failure (principal); I50.23 Acute on chronic systolic (congestive) heart failure; I25.10 Atherosclerotic heart disease of native coronary artery without angina pectoris

== ENCOUNTER → 2019-04-08 | Outpatient (REF) | LOC: ZLAB.WCH 18:25 | DX: Z01.89 Encounter for other specified special examinations (principal) ==

== ENCOUNTER → 2019-04-09 | Outpatient (CLI) | payer MEDICARE, MEDICAID ==
[2019-04-09 13:09] LABS: COLLECTION METHOD CLEAN CATCH
[2019-04-09 13:28] LABS: MUCOUS Present /lpf; PH 6 (5-8); SQUAMOUS EPITHELIAL 0-2 /hpf; URINE APPEARANCE Cloudy; URINE BACTERIA None Seen /hpf; URINE BILIRUBIN Negative (NEGATIVE); URINE BLOOD Negative (NEGATIVE); URINE COLOR Amber; URINE GLUCOSE Negative (NEGATIVE); URINE KETONE Negative (NEGATIVE); URINE LEUKOCYTE ESTERASE 3+ (NEGATIVE); URINE NITRATE Negative (NEGATIVE); URINE PROTEIN(semi-quant) Negative (NEGATIVE); URINE RBC 20-50 /hpf; URINE UROBILINOGEN >=4.0 mg/dL (NEGATIVE)
== END ==
LOC: ZCOL.LAB 10:27
PROVIDERS: Internal Medicine
DX: M54.5 Low back pain (principal); R42 Dizziness and giddiness

== ENCOUNTER → 2019-05-09 | Outpatient (CLI) | payer MEDICARE, MEDICAID ==
[2019-05-09 15:36] LABS: BASO % 0.4 % (0.0-2.0); EOS # 0.2 (0.0-0.7); EOS % 2.1 % (0-4.0); GRAN # 4.1 (1.4-6.5); GRAN % 56.3 % (42.2-75.2); HEMATOCRIT 43.8 % (42.0-52.0); HEMOGLOBIN 14.7 g/dl (13.5-18.0); LYMPH # 2.3 (1.2-3.4); LYMPH % 32.2 % (20.0-51.0); MEAN CELL VOLUME 94 fl (80.0-100.0); MEAN CORPUSCULAR HEMOGLOBIN 32 pg (27.0-31.0); MEAN CORPUSCULAR HGB CONC 34 g/dl (33.0-37.0); MEAN PLATELET VOLUME 10.4 fl (7.4-10.4); MONO # 0.6 (0.1-0.6); MONO % 7.6 % (1.7-9.3); PLATELET COUNT 122 K/mm3 (130-400); RED BLOOD COUNT 4.66 M/mm3 (4.20-5.60); REDCELL DISTRIBUTION WIDTH-CV 13.4 % (11.5-14.5)
[2019-05-09 15:45] LABS: ALBUMIN 3.4 gm/dL (3.5-5.0); BILIRUBIN,TOTAL 0.6 mg/dL (0.0-1.0); CALCIUM 8.7 mg/dL (8.4-10.2); CREATININE, serum 0.73 (0.66-1.25); TOTAL PROTEIN 5.6 gm/dL (6.4-8.2)
== END ==
LOC: ZCOL.LAB 12:48
PROVIDERS: Internal Medicine
DX: R79.89 Other specified abnormal findings of blood chemistry (principal); R68.89 Other general symptoms and signs

== ENCOUNTER → 2019-05-15 | Outpatient (CLI) | payer MEDICARE, MEDICAID | LOC: COL.RAD 05-14 11:30 | DX: K92.1 Melena (principal); R10.30 Lower abdominal pain, unspecified; K59.00 Constipation, unspecified; R63.4 Abnormal weight loss ==

== ENCOUNTER 2019-06-14 21:09 | Emergency (ER) | payer MEDICARE, MEDICAID ==
[2009-06-25 08:46] VITALS: BP 124/79
[~2019-06-14] VITALS: Ht 180.3 cm; Wt 81.8 kg
[~2019-06-14 21:09] MED LIST changes: +CELEBREX 200MG200 MG PO; +FREESTYLE PREC1 EAC5 MC
[2019-06-14 21:11] VITALS: TEMP 97.8
[2019-06-14 22:26] LABS: BASO % 0.3 % (0.0-2.0); EOS # 0.1 (0.0-0.7); EOS % 1.6 % (0-4.0); GRAN # 4.3 (1.4-6.5); GRAN % 60.4 % (42.2-75.2); HEMOGLOBIN 14.5 g/dl (13.5-18.0); LYMPH % 28.2 % (20.0-51.0); MEAN CELL VOLUME 94 fl (80.0-100.0); MEAN CORPUSCULAR HEMOGLOBIN 32 pg (27.0-31.0); MEAN CORPUSCULAR HGB CONC 34 g/dl (33.0-37.0); MEAN PLATELET VOLUME 9.8 fl (7.4-10.4); MONO # 0.6 (0.1-0.6); MONO % 8.5 % (1.7-9.3); PLATELET COUNT 113 K/mm3 (130-400); RED BLOOD COUNT 4.58 M/mm3 (4.20-5.60); REDCELL DISTRIBUTION WIDTH-CV 13.1 % (11.5-14.5)
[2019-06-14 22:36] LABS: ALANINE AMINOTRANSFERASE 17 U/L (21-72); ALBUMIN 3.9 gm/dL (3.5-5.0); ALKALINE PHOSPHATASE 64 U/L (50-136); ANION GAP 9 mmol/L (7-16); AST,SGOT 20 U/L (15-37); BILIRUBIN,TOTAL 0.6 mg/dL (0.0-1.0); BLOOD UREA NITROGEN 14 mg/dL (9-20); CALCIUM 8.8 mg/dL (8.4-10.2); CARBON DIOXIDE 30 mmol/L (22-30); CHLORIDE 103 mmol/L (98-107); CREATINE KINASE 57 U/L (55-170); CREATININE, serum 0.85 (0.66-1.25); GLUCOSE 108 mg/dL (74-106); POTASSIUM 4.1 mmol/L (3.4-5.0); PROTHROMBIN TIME 11.5 SECONDS (9.7-12.8); SODIUM 142 mmol/L (137-145); TOTAL PROTEIN 6.4 gm/dL (6.4-8.2)
[2019-06-14 22:50] LABS: TROPONIN-I < 0.012 ng/mL (0.000-0.035)
[2019-06-15 02:18] VITALS: BP 129/81; PULSE 95
== END 2019-06-15 02:18 | disposition home or self-care (01) ==
LOC: COL.ER 21:09
PROVIDERS: Emergency Medicine
DX: R07.89 Other chest pain (principal); E11.9 Type 2 diabetes mellitus without complications; J44.9 Chronic obstructive pulmonary disease, unspecified; G20 Parkinson's disease; F20.9 Schizophrenia, unspecified; I11.0 Hypertensive heart disease with heart failure; I50.9 Heart failure, unspecified; Z95.5 Presence of coronary angioplasty implant and graft; Z79.4 Long term (current) use of insulin; Z79.82 Long term (current) use of aspirin; Z79.02 Long term (current) use of antithrombotics/antiplatelets
CPT/HCPCS: J1170; J2405; J3010

== ENCOUNTER → 2019-06-17 | Outpatient (CLI) | payer MEDICARE, MEDICAID | LOC: ZCOL.LAB 16:16 | DX: E11.65 Type 2 diabetes mellitus with hyperglycemia (principal) ==

== ENCOUNTER 2019-07-01 21:15 | Emergency (ER) | payer MEDICARE, MEDICAID ==
[2009-06-25 08:46] VITALS: BP 124/79
[~2019-07-01] VITALS: Ht 180.3 cm; Wt 81.8 kg
[2019-07-01 21:17] VITALS: TEMP 98.9
[2019-07-01] MEDS ORDERED: PARCOPA 25/101 UDTAB NG (21:38)
[2019-07-01] MEDS ORDERED: CARDENE 20MG CA20 M1 PO (21:38)
[2019-07-01] MEDS ORDERED: CELEBREX 200MG200 MG PO (21:38)
[2019-07-01 22:20] LABS: BASO % 0.4 % (0.0-2.0); EOS # 0.1 (0.0-0.7); EOS % 0.9 % (0-4.0); GRAN # 6.4 (1.4-6.5); GRAN % 72.1 % (42.2-75.2); HEMATOCRIT 46.5 % (42.0-52.0); HEMOGLOBIN 15.9 g/dl (13.5-18.0); LYMPH # 1.6 (1.2-3.4); LYMPH % 18.3 % (20.0-51.0); MEAN CELL VOLUME 93 fl (80.0-100.0); MEAN CORPUSCULAR HEMOGLOBIN 32 pg (27.0-31.0); MEAN CORPUSCULAR HGB CONC 34 g/dl (33.0-37.0); MEAN PLATELET VOLUME 9.8 fl (7.4-10.4); MONO # 0.6 (0.1-0.6); MONO % 7.2 % (1.7-9.3); PLATELET COUNT 112 K/mm3 (130-400); RED BLOOD COUNT 5.01 M/mm3 (4.20-5.60); REDCELL DISTRIBUTION WIDTH-CV 12.8 % (11.5-14.5)
[2019-07-01 22:31] LABS: ALANINE AMINOTRANSFERASE < 6 U/L (21-72); ALBUMIN 4.3 gm/dL (3.5-5.0); ALKALINE PHOSPHATASE 66 U/L (50-136); ANION GAP 9 mmol/L (7-16); AST,SGOT 18 U/L (15-37); BILIRUBIN,TOTAL 0.8 mg/dL (0.0-1.0); BLOOD UREA NITROGEN 20 mg/dL (9-20); CALCIUM 9.2 mg/dL (8.4-10.2); CARBON DIOXIDE 29 mmol/L (22-30); CHLORIDE 102 mmol/L (98-107); GLUCOSE 143 mg/dL (74-106); POTASSIUM 4.4 mmol/L (3.4-5.0); SODIUM 140 mmol/L (137-145); TOTAL PROTEIN 6.8 gm/dL (6.4-8.2)
[2019-07-01 22:43] LABS: COLLECTION METHOD CATHETER
[2019-07-01 22:51] LABS: PH 7 (5-8); SQUAMOUS EPITHELIAL 0-2 /hpf; URINE APPEARANCE Clear; URINE BACTERIA Rare /hpf; URINE BILIRUBIN Negative (NEGATIVE); URINE BLOOD Negative (NEGATIVE); URINE COLOR Yellow; URINE GLUCOSE Negative (NEGATIVE); URINE KETONE Trace (NEGATIVE); URINE LEUKOCYTE ESTERASE 2+ (NEGATIVE); URINE NITRATE Negative (NEGATIVE); URINE PROTEIN(semi-quant) Negative (NEGATIVE); URINE UROBILINOGEN >=4.0 mg/dL (NEGATIVE)
[2019-07-01] MEDS ORDERED: MACROBID 1100 MG/CAP PO (22:58)
[2019-07-01 23:35] VITALS: BP 128/77; PULSE 96
== END 2019-07-01 23:35 | disposition home or self-care (01) ==
LOC: COL.ER 21:15
PROVIDERS: Family Medicine
DX: S70.01XA Contusion of right hip, initial encounter (principal); I25.10 Atherosclerotic heart disease of native coronary artery without angina pectoris; I10 Essential (primary) hypertension; F31.9 Bipolar disorder, unspecified; Z95.9 Presence of cardiac and vascular implant and graft, unspecified; Z79.4 Long term (current) use of insulin; W19.XXXA Unspecified fall, initial encounter; Y92.129 Unspecified place in nursing home as the place of occurrence of the external cause
CPT/HCPCS: A4216; J0696

== ENCOUNTER → 2019-07-08 | Outpatient (CLI) | payer MEDICARE, MEDICAID ==
[~2019-07-08] MED LIST changes: +CARDENE 20MG CA20 M1 PO; +MACROBID 1100 MG/CAP PO; +PARCOPA 25/101 UDTAB NG
[2019-07-08 12:21] LABS: CALCIUM 9.2 mg/dL (8.4-10.2); CREATININE, serum 0.67 (0.66-1.25)
== END ==
LOC: ZCOL.LAB 12:03
PROVIDERS: Internal Medicine
DX: E11.65 Type 2 diabetes mellitus with hyperglycemia (principal); I11.0 Hypertensive heart disease with heart failure

== ENCOUNTER 2019-07-25 08:37 | Day surgery (SDC) | payer MEDICARE, MEDICAID ==
[2009-06-25 08:46] VITALS: BP 124/79
[~2019-07-25] VITALS: Ht 180.3 cm; Wt 81.8 kg
[2019-07-25 09:31] VITALS: BP 143/90; PULSE 92; TEMP 97.6
[2019-07-25] MEDS ORDERED: ASPIRIN 81M81 MG/TA2 PO (09:56)
[2019-07-25] MEDS ORDERED: AMITIZA24 MCG PO (09:56)
[2019-07-25] MEDS ORDERED: LIPITOR 80MG80 MG PO (09:57)
[2019-07-25] MEDS ORDERED: CYMBALTA 60MG60 MG PO (09:58)
[2019-07-25] MEDS ORDERED: LANOXIN 0.120.125 MG PO (09:59)
[2019-07-25] MEDS ORDERED: LASIX 20MG TABL20 MG PO (10:00)
[2019-07-25] MEDS ORDERED: TIROSINT150 MC1 PO (10:01)
[2019-07-25] MEDS ORDERED: PROTONIX 40MG T40 MG PO (10:02)
[2019-07-25] MEDS ORDERED: SYMMETREL50 MG/5 ML PEG (10:04)
[2019-07-25] MEDS ORDERED: PLAVIX 75MG TAB75 MG PO (10:04)
[2019-07-25] MEDS ORDERED: COGENTIN .0.5 MG/TAB PO (10:05)
[2019-07-25] MEDS ORDERED: COLACE 100100 MG/CAP PO (10:06)
[2019-07-25] MEDS ORDERED: COREG 3.123.125 MG/T PO (10:07)
[2019-07-25] MEDS ORDERED: ENTRESTO 24 MG1 EACH PO (10:07)
[2019-07-25] MEDS ORDERED: RANEXA1000 MG PO (10:09)
[2019-07-25] MEDS ORDERED: CARDENE 20MG CA20 M1 PO (10:10)
[2019-07-25] MEDS ORDERED: REQUIP 1MG T1 MG/TAB PO (10:10)
[2019-07-25] MEDS ORDERED: SINEMET 25/101 UDTAB PO (10:11)
[2019-07-25 11:30] VITALS: BP 143/89; PULSE 88
--- NOTE | 2019-07-25 11:30 | NUR ---
Patient returns to room 9 per cart and is awake and alert. IV fluids infusing and patient is resting on cart. Siderails up x2 and call light in reach. Temp 97.8. Room air sats 97%. G tube noted and gauze dressing around the site dry.
[2019-07-25 11:45] VITALS: BP 152/89; PULSE 92
--- NOTE | 2019-07-25 11:45 | NUR ---
Patient is complaining of right knee pain. Assisted from cart to recliner with two persons. Taking applesauce.
[2019-07-25 12:00] VITALS: BP 136/83; PULSE 92
--- NOTE | 2019-07-25 12:00 | NUR ---
IV discontinued and assisted with dressing. No bleeding or drainage noted from around the G tube site.
--- NOTE | 2019-07-25 12:23 | NUR ---
Patient dismissed back to [facility] by wheelchair van and taken to the front door per wheelchair and assisted into van by José Antonio, transportation superintendent. Folder of dismissal instructions with the patient.
--- NOTE | 2019-07-25 12:30 | NUR ---
Report called ericka Mayfield LPN at [facility].
== END 2019-07-25 12:30 | disposition home or self-care (01) ==
LOC: SDCO 08:37
DX: T18.2XXA Foreign body in stomach, initial encounter (principal); K22.2 Esophageal obstruction; I25.2 Old myocardial infarction; I25.10 Atherosclerotic heart disease of native coronary artery without angina pectoris; I11.0 Hypertensive heart disease with heart failure; I50.9 Heart failure, unspecified; J44.9 Chronic obstructive pulmonary disease, unspecified; G47.33 Obstructive sleep apnea (adult) (pediatric); E11.9 Type 2 diabetes mellitus without complications; E03.9 Hypothyroidism, unspecified; F32.9 Major depressive disorder, single episode, unspecified; F41.9 Anxiety disorder, unspecified; F20.9 Schizophrenia, unspecified; G20 Parkinson's disease; Z79.82 Long term (current) use of aspirin; Z79.02 Long term (current) use of antithrombotics/antiplatelets; Z79.4 Long term (current) use of insulin; Z99.81 Dependence on supplemental oxygen; Z87.440 Personal history of urinary (tract) infections
CPT/HCPCS: J0585; J2704; J7030

== ENCOUNTER → 2019-08-08 | Outpatient (CLI) | payer MEDICARE, MEDICAID ==
[~2019-08-08] MED LIST changes: +REQUIP 1MG T1 MG/TAB PO; +SINEMET 25/101 UDTAB PO
[2019-08-08 21:06] LABS: COLLECTION METHOD CATHETER
[2019-08-08 21:17] LABS: MUCOUS Present /lpf; PH 5 (5-8); SQUAMOUS EPITHELIAL 0-2 /hpf; URINE APPEARANCE Clear; URINE BACTERIA None Seen /hpf; URINE BILIRUBIN Negative (NEGATIVE); URINE BLOOD Negative (NEGATIVE); URINE COLOR Amber; URINE GLUCOSE Negative (NEGATIVE); URINE KETONE Negative (NEGATIVE); URINE LEUKOCYTE ESTERASE 1+ (NEGATIVE); URINE NITRATE Negative (NEGATIVE); URINE PROTEIN(semi-quant) Negative (NEGATIVE); URINE UROBILINOGEN Negative (NEGATIVE); URINE WBC 20-50 /hpf
== END ==
LOC: ZCOL.LAB 18:41
PROVIDERS: Internal Medicine
DX: N39.0 Urinary tract infection, site not specified (principal)

== ENCOUNTER 2019-08-20 17:30 | Emergency (ER) | payer MEDICARE, MEDICAID ==
[2009-06-25 08:46] VITALS: BP 124/79
[~2019-08-20] VITALS: Ht 180.3 cm; Wt 81.8 kg
[2019-08-20 17:32] VITALS: TEMP 97
[2019-08-20 17:50] LABS: BASO % 0.4 % (0.0-2.0); EOS # 0.1 (0.0-0.7); EOS % 1.7 % (0-4.0); GRAN # 4.1 (1.4-6.5); GRAN % 59.6 % (42.2-75.2); HEMATOCRIT 43.7 % (42.0-52.0); HEMOGLOBIN 14.9 g/dl (13.5-18.0); LYMPH % 28.1 % (20.0-51.0); MEAN CELL VOLUME 94 fl (80.0-100.0); MEAN CORPUSCULAR HEMOGLOBIN 32 pg (27.0-31.0); MEAN CORPUSCULAR HGB CONC 34 g/dl (33.0-37.0); MEAN PLATELET VOLUME 10.1 fl (7.4-10.4); MONO # 0.6 (0.1-0.6); MONO % 8.8 % (1.7-9.3); PLATELET COUNT 129 K/mm3 (130-400); RED BLOOD COUNT 4.67 M/mm3 (4.20-5.60); REDCELL DISTRIBUTION WIDTH-CV 12.6 % (11.5-14.5)
[2019-08-20 17:58] LABS: PROTHROMBIN TIME 12.2 SECONDS (9.7-12.8)
[2019-08-20 18:01] LABS: PARTIAL THROMBOPLASTIN TIME 32.3 SECONDS (26.0-37.0)
[2019-08-20 18:04] LABS: ALANINE AMINOTRANSFERASE 6 U/L (21-72); ALBUMIN 4.3 gm/dL (3.5-5.0); ALKALINE PHOSPHATASE 61 U/L (50-136); ANION GAP 10 mmol/L (7-16); AST,SGOT 14 U/L (15-37); BILIRUBIN,TOTAL 0.9 mg/dL (0.0-1.0); BLOOD UREA NITROGEN 25 mg/dL (9-20); CALCIUM 8.9 mg/dL (8.4-10.2); CARBON DIOXIDE 28 mmol/L (22-30); CHLORIDE 100 mmol/L (98-107); CREATININE, serum 0.77 (0.66-1.25); GLUCOSE 174 mg/dL (74-106); POTASSIUM 4.4 mmol/L (3.4-5.0); SODIUM 138 mmol/L (137-145); TOTAL PROTEIN 6.7 gm/dL (6.4-8.2)
[2019-08-20 18:16] LABS: TROPONIN-I < 0.012 ng/mL (0.000-0.035)
[2019-08-20 21:49] VITALS: BP 128/74; PULSE 80
== END 2019-08-20 22:45 | disposition home or self-care (01) ==
LOC: COL.ER 17:30
PROVIDERS: Family Medicine
DX: R07.89 Other chest pain (principal); I10 Essential (primary) hypertension; E11.9 Type 2 diabetes mellitus without complications; Z79.82 Long term (current) use of aspirin; Z79.02 Long term (current) use of antithrombotics/antiplatelets
CPT/HCPCS: J3010

== ENCOUNTER 2019-08-31 15:11 | Emergency (ER) | payer MEDICARE, MEDICAID ==
[2009-06-25 08:46] VITALS: BP 124/79
[~2019-08-31] VITALS: Ht 180.3 cm; Wt 81.8 kg
[2019-08-31 15:15] VITALS: TEMP 97.6
[2019-08-31 15:59] LABS: HEMOGLOBIN 17.1 g/dl (13.5-18.0); MEAN CELL VOLUME 94 fl (80.0-100.0); MEAN CORPUSCULAR HEMOGLOBIN 32 pg (27.0-31.0); MEAN CORPUSCULAR HGB CONC 34 g/dl (33.0-37.0); MEAN PLATELET VOLUME 9.7 fl (7.4-10.4); PLATELET COUNT 139 K/mm3 (130-400); RED BLOOD COUNT 5.31 M/mm3 (4.20-5.60); REDCELL DISTRIBUTION WIDTH-CV 12.8 % (11.5-14.5)
[2019-08-31 16:10] LABS: ALANINE AMINOTRANSFERASE 12 U/L (21-72); ALBUMIN 4.8 gm/dL (3.5-5.0); ALKALINE PHOSPHATASE 73 U/L (50-136); ANION GAP 11 mmol/L (7-16); AST,SGOT 15 U/L (15-37); BILIRUBIN,TOTAL 0.9 mg/dL (0.0-1.0); BLOOD UREA NITROGEN 19 mg/dL (9-20); CALCIUM 9.4 mg/dL (8.4-10.2); CARBON DIOXIDE 30 mmol/L (22-30); CHLORIDE 99 mmol/L (98-107); CREATINE KINASE 23 U/L (55-170); CREATININE, serum 0.83 (0.66-1.25); GLUCOSE 259 mg/dL (74-106); LIPASE 94 U/L (23-300); POTASSIUM 4.4 mmol/L (3.4-5.0); SODIUM 140 mmol/L (137-145); TOTAL PROTEIN 7.5 gm/dL (6.4-8.2)
[2019-08-31 16:19] LABS: PROTHROMBIN TIME 11.8 SECONDS (9.7-12.8)
[2019-08-31 16:30] LABS: TROPONIN-I < 0.012 ng/mL (0.000-0.035)
[2019-08-31 16:40] LABS: BAND 3 % (0-10); LYMPHOCYTE 20 % (20.0-51.0); NEUTROPHILS 67 % (42.0-75.2)
[2019-08-31 16:41] LABS: PLATELET ESTIMATE NORMAL (NORMAL)
[2019-08-31 19:08] VITALS: BP 124/73; PULSE 91
== END 2019-08-31 19:08 | disposition home or self-care (01) ==
LOC: COL.ER 15:11
PROVIDERS: Emergency Medicine
DX: R07.9 Chest pain, unspecified (principal); I10 Essential (primary) hypertension; E11.9 Type 2 diabetes mellitus without complications; K21.9 Gastro-esophageal reflux disease without esophagitis; I50.9 Heart failure, unspecified; J44.9 Chronic obstructive pulmonary disease, unspecified; E03.9 Hypothyroidism, unspecified; F41.9 Anxiety disorder, unspecified; F31.9 Bipolar disorder, unspecified; F20.9 Schizophrenia, unspecified; Z95.5 Presence of coronary angioplasty implant and graft; Z79.82 Long term (current) use of aspirin
CPT/HCPCS: J1170; J3010

== ENCOUNTER → 2019-10-09 | Outpatient (CLI) | payer MEDICARE, MEDICAID | LOC: ZCOL.LAB 10:51 | DX: R73.09 Other abnormal glucose (principal); I50.9 Heart failure, unspecified ==

== ENCOUNTER → 2019-10-20 | Outpatient (CLI) | payer MEDICARE, MEDICAID | LOC: ZCOL.LAB 13:10 | DX: I10 Essential (primary) hypertension (principal) ==

== ENCOUNTER 2019-10-27 18:07 | Emergency (ER) | payer MEDICARE, MEDICAID ==
[2009-06-25 08:46] VITALS: BP 124/79
[~2019-10-27] VITALS: Ht 180.3 cm; Wt 84.1 kg
[2019-10-27 18:34] LABS: HEMATOCRIT 41.9 % (42.0-52.0); HEMOGLOBIN 14.5 g/dl (13.5-18.0); MEAN CELL VOLUME 94 fl (80.0-100.0); MEAN CORPUSCULAR HEMOGLOBIN 33 pg (27.0-31.0); MEAN CORPUSCULAR HGB CONC 35 g/dl (33.0-37.0); MEAN PLATELET VOLUME 9.6 fl (7.4-10.4); PLATELET COUNT 106 K/mm3 (130-400); RED BLOOD COUNT 4.45 M/mm3 (4.20-5.60)
[2019-10-27 18:56] LABS: ALANINE AMINOTRANSFERASE 11 U/L (21-72); ALKALINE PHOSPHATASE 71 U/L (50-136); ANION GAP 8 mmol/L (7-16); AST,SGOT 17 U/L (15-37); BLOOD UREA NITROGEN 14 mg/dL (9-20); CALCIUM 8.7 mg/dL (8.4-10.2); CARBON DIOXIDE 30 mmol/L (22-30); CHLORIDE 102 mmol/L (98-107); CREATININE, serum 0.62 (0.66-1.25); GLUCOSE 200 mg/dL (74-106); POTASSIUM 3.8 mmol/L (3.4-5.0); SODIUM 140 mmol/L (137-145); TOTAL PROTEIN 6.3 gm/dL (6.4-8.2)
[2019-10-27 19:09] LABS: C-REACTIVE PROTEIN < 0.5 mg/dL (0.0-0.9)
[2019-10-27 19:48] LABS: EOSINOPHIL 2 % (0-4); LYMPHOCYTE 30 % (20.0-51.0); MYELOCYTE 1 % (0-0); NEUTROPHILS 63 % (42.0-75.2); PLATELET ESTIMATE DECREASED (NORMAL)
[2019-10-27 21:19] VITALS: BP 150/94; PULSE 91; TEMP 98.4
[2019-10-28 08:42] LABS: PATHOLOGY DIFF REVIEW OK
== END 2019-10-27 21:09 | disposition home or self-care (01) ==
LOC: COL.ER 18:07
PROVIDERS: Family Medicine
DX: M25.561 Pain in right knee (principal); M25.562 Pain in left knee; G89.29 Other chronic pain; I25.10 Atherosclerotic heart disease of native coronary artery without angina pectoris; I11.0 Hypertensive heart disease with heart failure; G20 Parkinson's disease; Z79.82 Long term (current) use of aspirin; Z79.02 Long term (current) use of antithrombotics/antiplatelets
CPT/HCPCS: J1200; J2270; J2550; J7050

== ENCOUNTER → 2019-12-10 | Outpatient (CLI) | payer MEDICARE, MEDICAID ==
[2019-12-10 11:37] LABS: COLLECTION METHOD CLEAN CATCH
[2019-12-10 12:50] LABS: BUDDING YEAST Present /hpf; PH 6 (5-8); SQUAMOUS EPITHELIAL 0-2 /hpf; URINE APPEARANCE Cloudy; URINE BACTERIA Rare /hpf; URINE BILIRUBIN Negative (NEGATIVE); URINE BLOOD Negative (NEGATIVE); URINE COLOR Amber; URINE GLUCOSE 3+ (NEGATIVE); URINE KETONE Negative (NEGATIVE); URINE LEUKOCYTE ESTERASE 3+ (NEGATIVE); URINE NITRATE Negative (NEGATIVE); URINE PROTEIN(semi-quant) Negative (NEGATIVE); URINE RBC 20-50 /hpf; URINE UROBILINOGEN >=4.0 mg/dL (NEGATIVE); URINE WBC >50 /hpf
== END ==
LOC: ZCOL.LAB 11:08
PROVIDERS: Internal Medicine
DX: N39.0 Urinary tract infection, site not specified (principal)

== ENCOUNTER 2020-01-27 06:00 | Emergency (ER) | payer MEDICARE, MEDICAID ==
[2009-06-25 08:46] VITALS: BP 124/79
[~2020-01-27] VITALS: Ht 180.3 cm; Wt 90.9 kg
[2020-01-27 06:01] VITALS: TEMP 98.4
[2020-01-27 06:25] LABS: BASO # 0.1 (0.0-0.2); BASO % 0.8 % (0.0-2.0); EOS # 0.2 (0.0-0.7); EOS % 2.1 % (0-4.0); GRAN # 3.7 (1.4-6.5); GRAN % 51.6 % (42.2-75.2); HEMATOCRIT 41.5 % (42.0-52.0); HEMOGLOBIN 14.3 g/dl (13.5-18.0); LYMPH # 2.4 (1.2-3.4); LYMPH % 32.8 % (20.0-51.0); MEAN CELL VOLUME 94 fl (80.0-100.0); MEAN CORPUSCULAR HEMOGLOBIN 32 pg (27.0-31.0); MEAN CORPUSCULAR HGB CONC 35 g/dl (33.0-37.0); MEAN PLATELET VOLUME 9.6 fl (7.4-10.4); MONO # 0.6 (0.1-0.6); MONO % 8.5 % (1.7-9.3); PLATELET COUNT 125 K/mm3 (130-400); RED BLOOD COUNT 4.42 M/mm3 (4.20-5.60); REDCELL DISTRIBUTION WIDTH-CV 13.3 % (11.5-14.5)
[2020-01-27 06:30] LABS: ALANINE AMINOTRANSFERASE 10 U/L (4-49); ALBUMIN 3.8 gm/dL (3.5-5.0); ALKALINE PHOSPHATASE 83 U/L (50-136); ANION GAP 6 mmol/L (7-16); AST,SGOT 21 U/L (15-37); BILIRUBIN,TOTAL 0.8 mg/dL (0.0-1.0); BLOOD UREA NITROGEN 16 mg/dL (9-20); CALCIUM 8.9 mg/dL (8.4-10.2); CARBON DIOXIDE 30 mmol/L (22-30); CHLORIDE 100 mmol/L (98-107); CREATININE, serum 0.64 (0.66-1.25); GLUCOSE 272 mg/dL (74-106); LIPASE 122 U/L (23-300); POTASSIUM 4.1 mmol/L (3.4-5.0); SODIUM 135 mmol/L (137-145); TOTAL PROTEIN 6.2 gm/dL (6.4-8.2)
[2020-01-27 06:42] LABS: TROPONIN-I < 0.012 ng/mL (0.000-0.035)
[2020-01-27 08:29] LABS: PROTHROMBIN TIME 11.6 SECONDS (9.7-12.8)
[2020-01-27] MEDS ORDERED: LEVEMIR FLEX100 U/ML SQ (08:41)
[2020-01-27] MEDS ORDERED: MIRALAX PA17 GM/Dose PO (08:41)
[2020-01-27] MEDS ORDERED: REMERON30 MG PO (08:42)
[2020-01-27] MEDS ORDERED: LASIX 20MG TABL20 MG PO (08:42)
[2020-01-27] MEDS ORDERED: KLONOPIN2 MG PO (08:57)
[2020-01-27] MEDS ORDERED: TUMS500 MG PO (08:58)
[2020-01-27] MEDS ORDERED: DULCOLAX TAB5 MG PO (09:00)
[2020-01-27] MEDS ORDERED: CYMBALTA 60MG60 MG PO (09:01)
[2020-01-27] MEDS ORDERED: ZOFRAN ODT4 MG PO (09:09)
[2020-01-27] MEDS ORDERED: AMITIZA24 MCG PO (09:10)
[2020-01-27] MEDS ORDERED: NOVOLOG FLEX100 U/ML SQ (09:12)
[2020-01-27] MEDS ORDERED: ROXANOL 20MG20 MG/ML SL (10:07)
[2020-01-27] MEDS ORDERED: NITROSTAT0.4 MG/TAB SL (10:08)
[2020-01-27] MEDS ORDERED: TYLENOL 500MG500 MG PO (10:09)
[2020-01-27 11:48] VITALS: BP 137/84; PULSE 94
== END 2020-01-27 12:10 | disposition home or self-care (01) ==
LOC: COL.ER 06:00
PROVIDERS: Emergency Medicine
DX: R07.89 Other chest pain (principal); I10 Essential (primary) hypertension; I25.10 Atherosclerotic heart disease of native coronary artery without angina pectoris; E11.9 Type 2 diabetes mellitus without complications; J44.9 Chronic obstructive pulmonary disease, unspecified; Z95.5 Presence of coronary angioplasty implant and graft; Z79.82 Long term (current) use of aspirin; Z79.02 Long term (current) use of antithrombotics/antiplatelets; Z79.4 Long term (current) use of insulin
CPT/HCPCS: J1940; J2405; J7030

== ENCOUNTER → 2020-03-05 | Outpatient (CLI) | payer MEDICARE, MEDICAID ==
[~2020-03-05] MED LIST changes: +MIRALAX PA17 GM/Dose PO; +REMERON30 MG PO; +TUMS500 MG PO
[2020-03-05 17:19] LABS: COLLECTION METHOD CLEAN CATCH
[2020-03-05 17:32] LABS: BASO # 0.1 (0.0-0.2); BASO % 0.5 % (0.0-2.0); EOS # 0.1 (0.0-0.7); GRAN # 7.2 (1.4-6.5); GRAN % 72.9 % (42.2-75.2); HEMATOCRIT 47.6 % (42.0-52.0); HEMOGLOBIN 16.2 g/dl (13.5-18.0); LYMPH # 1.7 (1.2-3.4); LYMPH % 17.5 % (20.0-51.0); MEAN CELL VOLUME 95 fl (80.0-100.0); MEAN CORPUSCULAR HEMOGLOBIN 32 pg (27.0-31.0); MEAN CORPUSCULAR HGB CONC 34 g/dl (33.0-37.0); MEAN PLATELET VOLUME 10.4 fl (7.4-10.4); MONO # 0.7 (0.1-0.6); MONO % 6.7 % (1.7-9.3); PLATELET COUNT 143 K/mm3 (130-400); RED BLOOD COUNT 5.02 M/mm3 (4.20-5.60); REDCELL DISTRIBUTION WIDTH-CV 13.1 % (11.5-14.5)
[2020-03-05 17:36] LABS: BUDDING YEAST Present /hpf; MUCOUS Present /lpf; PH 6 (5-8); SQUAMOUS EPITHELIAL 0-2 /hpf; URINE APPEARANCE Cloudy; URINE BACTERIA None Seen /hpf; URINE BILIRUBIN Negative (NEGATIVE); URINE BLOOD Negative (NEGATIVE); URINE CALCIUM OXALATE CRYSTAL Present /hpf; URINE COLOR Amber; URINE GLUCOSE 1+ (NEGATIVE); URINE KETONE Negative (NEGATIVE); URINE LEUKOCYTE ESTERASE 3+ (NEGATIVE); URINE NITRATE Negative (NEGATIVE); URINE PROTEIN(semi-quant) Negative (NEGATIVE); URINE UROBILINOGEN >=4.0 mg/dL (NEGATIVE); URINE WBC >50 /hpf
[2020-03-05 22:27] LABS: ALBUMIN 3.8 gm/dL (3.5-5.0); BILIRUBIN,TOTAL 0.8 mg/dL (0.0-1.0); CALCIUM 9.1 mg/dL (8.4-10.2); CREATININE, serum 0.61 (0.66-1.25); TOTAL PROTEIN 6.4 gm/dL (6.4-8.2)
== END ==
LOC: ZCOL.LAB 15:49
PROVIDERS: Internal Medicine
DX: I25.10 Atherosclerotic heart disease of native coronary artery without angina pectoris (principal); N39.0 Urinary tract infection, site not specified

== ENCOUNTER → 2020-03-15 | Outpatient (CLI) | payer MEDICARE, MEDICAID | LOC: ZCOL.LAB 16:59 | DX: I11.0 Hypertensive heart disease with heart failure (principal) ==

== ENCOUNTER 2020-03-26 10:05 | Day surgery (SDC) | payer MEDICARE, MEDICAID ==
[~2020-03-26 10:05] MED LIST changes: +SYMMETREL50 MG/5 ML PO
[2020-03-26] MEDS ORDERED: AMITIZA24 MCG PO (10:52)
[2020-03-26] MEDS ORDERED: COLACE 100100 MG/CAP PO (11:01)
[2020-03-26 11:20] VITALS: BP 111/80; PULSE 95; TEMP 98.1
[2020-03-26 11:35] VITALS: BP 113/73; PULSE 93
[2020-03-26 11:50] VITALS: BP 118/76; PULSE 96
[2020-03-26 12:45] VITALS: BP 124/75; PULSE 91; TEMP 97.5
--- NOTE | 2020-03-26 16:55 | NUR ---
PT RETURNED TO RM#4 AFTER PROCEDURE PER CART. PT ALERT TO NAME BEING CALLED AND WAS ORIENTED, SLEEPY. VSS, LUNGS CLEAR, HRR, BOWEL SOUNDS PRESENT. WILL CONTINUE TO MONITOR PROGRESS.
--- NOTE | 2020-03-26 16:59 | NUR ---
PT ALERT, SIPPING SLOWLY ON WATER. PT SATES FEELING NAUSEATED AND RATING AT A 6 ON 0-10 SCALE. 4MG IV ZOFRAN GIVEN. WILL CONTINUE TO MONITOR NAUSEA. PT DENIES PAIN AT THIS TIME.
--- NOTE | 2020-03-26 17:03 | NUR ---
PT TOLERATIMG FOOD AND FLUIDS, ATE CHOCOLATE PUDDING AND REQUESTED SPRITE. TOLERATED BOTH WELL WITHOUT ANY NAUSEA OR VOMITING. ABD PEG TUBE DRESSING WAS DRY AND INTACT. DENIES PAIN. CALLED FOR [facility] FOR TRANSPORT BACK TO THE INTERMEDIATE. REPORT CALLED TO JEANNETTE THAYER AT [facility]. DISCHARGE GIVEN TO PT, PT VOICES UNDERSTANDING AND STATED HE COULDNT SING HIMSELF OUT. PT DENIES QUESTIONS AND WAS DISCHARGED VIA WHEELCHAIR TO TRANSPORTATION BACK TO INTERMEDIATE.
[2020-03-26 20:52] VITALS: BP 107/82; PULSE 95
== END 2020-03-26 13:00 | disposition home or self-care (01) ==
LOC: SDCO 10:05
DX: K22.0 Achalasia of cardia (principal); R13.10 Dysphagia, unspecified; K21.9 Gastro-esophageal reflux disease without esophagitis; N39.0 Urinary tract infection, site not specified; E11.9 Type 2 diabetes mellitus without complications; I10 Essential (primary) hypertension; G47.33 Obstructive sleep apnea (adult) (pediatric); G44.009 Cluster headache syndrome, unspecified, not intractable; F32.9 Major depressive disorder, single episode, unspecified; F20.89 Other schizophrenia; R53.82 Chronic fatigue, unspecified; G20 Parkinson's disease; K59.00 Constipation, unspecified; R19.7 Diarrhea, unspecified; J44.9 Chronic obstructive pulmonary disease, unspecified; M19.90 Unspecified osteoarthritis, unspecified site; M48.02 Spinal stenosis, cervical region; Z79.4 Long term (current) use of insulin; Z79.82 Long term (current) use of aspirin; Z79.02 Long term (current) use of antithrombotics/antiplatelets; Z79.899 Other long term (current) drug therapy; Z95.5 Presence of coronary angioplasty implant and graft; Z88.1 Allergy status to other antibiotic agents; Z88.5 Allergy status to narcotic agent; Z88.8 Allergy status to other drugs, medicaments and biological substances
CPT/HCPCS: J0585; J2405; J2704